=== PATIENT | male | born 1935 | race American Indian/Alaskan Native ===

== ENCOUNTER 2017-08-07 12:24 | Inpatient (IN) | payer MEDICARE, MEDICAID ==
[2017-08-07 12:31] VITALS: BMI 31.3
--- NOTE | 2017-08-07 13:20 | ED PDOC ---
Arrival/HPI - General Historian: Patient, Family (daughter) - History of Present Illness Time/Duration: 1 week Symptom Onset: Gradual Symptom Course: Unchanged, Worsening - General Chief Complaint: Altered Mental Status Time Seen by Provider: 08/07/17 12:47 - History of Present Illness Narrative History of Present Illness (Text): 08/07/17 13:12 Patient is an 82 yo M with PMH of urinary incontinence presents to ED due to altered mental status according to daughter. Patient is a poor historian as he is only oriented to himself. History provided by daughter who is at bedside. Patient lives in a senior citizen facility in [place] on his own and at baseline is able to ambulate and care for himself. Approximately one week ago the patient believed he had a winning [employer] ticket and was told to go to [place] to redeem the ticket. However, according to the daughter the ticket was not a winner. Patient was found near [place] at a restaurant, incontinent of urine, and acting strange. PD was called and patient was taken to hospital. It is unclear if the patient was evaluated at that point. The daughter states that while he was in [place] he began buying bus tickets to random locations. The patient was brought back to [place] and has taken in by his daughter. The daughter states that his mental status was somewhat confused, but stable throughout the week. However, today the daughter states that he became more confused and was asking for his mother who has been for many years. Patient was also complaining of right LE pain. Daughter states that his PO intake has been adequate. ROS limited due to patient's current mental status. No PMD (Keith Fraga) Past Medical History - Infectious Disease Hx of Infectious Diseases: None - Cardiac Hx Cardiac Disorders: Yes Hx Hypertension: Yes - Pulmonary Hx Respiratory Disorders: No - Neurological Hx Neurological Disorder: No - HEENT Hx HEENT Disorder: No - Renal Hx Renal Disorder: No - Endocrine/Metabolic Hx Endocrine Disorders: No - Hematological/Oncological Hx Blood Disorders: No - Integumentary Hx Dermatological Disorder: No - Musculoskeletal/Rheumatological Hx Musculoskeletal Disorders: No - Gastrointestinal Hx Gastrointestinal Disorders: No - Genitourinary/Gynecological Hx Genitourinary Disorders: No - Psychiatric Hx Psychophysiologic Disorder: No Hx Substance Use: No (As per daughter) Family/Social History - Physician Review Nursing Documentation Reviewed: Yes Family/Social History: No Known Family HX Smoking Status: Unknown If Ever Smoked Hx Alcohol Use: No (As per daughter) Hx Substance Use: No (As per daughter) Allergies/Home Meds Allergies/Adverse Reactions: Allergies No Known Allergies Allergy (Verified 08/07/17 12:31) Home Medications: Home Meds Medication Instructions Recorded Confirmed No Known Home Med 08/07/17 08/07/17 Review of Systems - Review of Systems Systems not reviewed;Unavailable: Altered Mental Status Physical Exam - Physical Exam Physical Exam Limitations: Altered Mental Status Vital Signs Reviewed: Yes Temperature: Afebrile Blood Pressure: Hypertensive Pulse: Regular Respiratory Rate: Normal Appearance: Positive for: Non-Toxic Pain Distress: None Mental Status: Positive for: Confused - Systems Exam Head: Present: Atraumatic, Normocephalic Pupils: Present: PERRL Extroacular Muscles: Present: EOMI Conjunctiva: Present: Normal Mouth: Present: Moist Mucous Membranes Neck: Present: Normal Range of Motion Respiratory/Chest: Present: Clear to Auscultation. No: Respiratory Distress, Wheezes, Rales, Rhonchi Cardiovascular: Present: Regular Rate and Rhythm, Normal S1, S2. No: Murmurs, Rub, Gallop Abdomen: No: Tenderness, Distention, Rebound, Guarding Upper Extremity: Present: Normal Inspection. No: Cyanosis, Edema Lower Extremity: Present: Edema (1+ b/l), NORMAL PULSES (decreased DP pulse on left). No: CALF TENDERNESS, Francisco's Sign, Tenderness Neurological: Present: GCS=15, CN II-XII Intact, Speech Normal, Motor Func Grossly Intact Skin: Present: Warm, Dry, Normal Color. No: Rashes Psychiatric: Present: Alert. No: Oriented x 3 (only oriented to self) Vital Signs Temp Pulse Resp BP Pulse Ox 08/07/17 16:13 80 18 163/84 H 99 08/07/17 15:53 65 18 176/91 H 98 08/07/17 14:16 70 20 155/84 H 99 08/07/17 13:10 67 18 158/89 H 97 08/07/17 12:33 98.5 F 62 18 169/88 H 98 Medical Decision Making ED Course and Treatment: 08/07/17 13:22 82 yo M presents to ED due to AMS. Plan: - CBC, CMP - Coags - Cardiac Iso - UA - CXR - Head CT - LE US, r/o DVT - EKG - Reassess and disposition 08/07/17 13:26 EKG reviewed, shows rate 65, sinus rhythm with 1st degree AV block, possible left atrial enlargement, left axis deviation, and left ventricular hypertrophy. 08/07/17 14:[address] Dr. Turner. Impression: There is an acute hemorrhage in the right frontal lobe measuring 2.7 x 3.7 cm. There is a small amout of surrounding edema. 08/07/17 14:29 Neurosurgery contacted, Dr. Snyder, who stated no surgical intervention at this time. Recommends elevated head of bed, repeat head CT in AM, and eventual MRI. 08/07/17 14:51 CXR reviewed by radiologist showed no active disease. 08/07/17 14:[address] Shine, who agrees with plan and accepts patient to his service. Requests Dr. Ceballos for neurology consult. Dr. Plata was consulted for ICU evaluation; he agrees with plan and accepts admission to ICU. Dr. Ceballos requests CTA of head. (Keith Fraga) 08/07/17 18:39 Patient seen and evaluated with medical review specialist. I examined patient and reviewed history with daughter at bedside. The patient reportedly lives in [place]. Approximately 8 days ago reportedly the patient began exhibiting bizzarre behavior and has had history of change in his behavior noted since then. No trauma reported. No fevers reported. Hemorrhage noted on CT. Patient complains of mild right sided frontal headache. BP 155/88 on re-evaluation. No slurred speech. No acute visual symptoms. Patient with no focal weakness noted in arms or leg, no slurred speech. CT head discussed directly with neurosurgery oncall, who has reviewed CT reading and made recommendations. I also reviewed case with neurologist Dr. ceballos, and installers mechanical, who accepts admission to ICU. Serial exams reveal no change since initial exam. (Enoc Vinson) - Lab Interpretations Lab Results: 08/07/17 13:20 08/07/17 13:20 Lab Results 08/07/17 13:20: Sodium 146, Potassium 4.5, Chloride 105, Carbon Dioxide 28, Anion Gap 18, BUN 18, Creatinine 1.1, Est GFR ( Amer) > 60, Est GFR (Non- Af Amer) > 60, Random Glucose 165 H, Calcium 9.2, Magnesium 2.1, Total Bilirubin 1.0, AST 22, ALT 24, Alkaline Phosphatase 62, Lactate Dehydrogenase 413, Total Creatine Kinase 158, Troponin I < 0.01, Total Protein 8.2, Albumin 4.3, Globulin 3.8, Albumin/Globulin Ratio 1.1 08/07/17 13:20: PT 12.0, INR 1.05, APTT 29.4 08/07/17 13:20: WBC 7.7, RBC 4.54, Hgb 12.7 L, Hct 37.5 L, MCV 82.6, MCH 28.0, MCHC 33.9, RDW 14.4, Plt Count 344, MPV 9.5, Gran % 62.6, Lymph % (Auto) 27.9, Ness % (Auto) 6.2 H, Eos % (Auto) 2.9, Baso % (Auto) 0.4, Gran # 4.82, Lymph # ( Auto) 2.2, Ness # (Auto) 0.5, Eos # (Auto) 0.2, Baso # (Auto) 0.03 - RAD Interpretation Radiology Orders: 08/07/17 13:05 CHEST ONE VIEW [RAD] Stat 08/07/17 13:10 HEAD W/O CONTRAST [CT] Stat - Medication Orders Current Medication Orders: Nicardipine HCl (Cardene Iv Premix) 20 mg in 200 mls @ 50 mls/hr IV .Q4H PRN; Protocol; 5 MG/HR PRN Reason: BPs more then 160 Last Titration: 08/07/17 16:12 Dose: 7.5 mg/hr, 75 mls/hr Titration Intervention Document 08/07/17 16:12 ABBY (Rec: 08/07/17 16:13 ABBY [id number]) Titration Intake Container Volume 180 Titration Dosing Titration Dose 7.5 IV Rate 75 Intake/Decrease Started Sodium Chloride (Sodium Chloride 0.9%) 1,000 mls @ 100 mls/hr IV .Q10H CIARAN Pantoprazole Sodium (Protonix Inj) 40 mg IVP DAILY CIARAN Last Admin: 08/07/17 15:24 Dose: 40 mg IVP Administration Document 08/07/17 15:24 BENNIE (Rec: 08/07/17 15:24 BENNIE [id number]) Charges for Administration # of IVP Administrations 1 Discontinued Medications Levetiracetam (Keppra 500mg Ivpb) 500 mg in 100 mls @ 400 mls/hr IVPB STAT STA Stop: 08/07/17 18:06 Sodium Chloride (Hypertonic Saline 3%) 100 ml IV STAT STA Stop: 08/07/17 14:59 Last Admin: 08/07/17 15:22 Dose: 100 ml eMAR Start Stop Document 08/07/17 15:22 BENNIE (Rec: 08/07/17 15:24 BENNIE [id number]) Intravenous Solution Start Date 08/07/17 Start Time 15:22 End Date 08/07/17 End time 16:22 Total Infusion Time 60 Disposition/Present on Arrival - Present on Arrival Any Indicators Present on Arrival: No History of DVT/PE: No History of Uncontrolled Diabetes: No Urinary Catheter: No History of Decub. Ulcer: No History Surgical Site Infection Following: None - Disposition Have Diagnosis and Disposition been Completed?: Yes Disposition Time: 15:32 Patient Plan: Admission, ICU - Disposition Diagnosis: Cerebral hemorrhage, Altered mental status Disposition: HOSPITALIZED Patient Problems: Current Active Problems Problem Status Onset Altered mental status Acute Cerebral hemorrhage Acute Condition: GUARDED
[2017-08-07 13:36] LABS: BASO # 0.03 K/mm3 (0.0-2.0); BASO % 0.4 % (0.0-3.0); EOS # 0.2 (0.0-0.7); EOS % 2.9 % (1.5-5.0); GRAN # 4.82 (1.4-6.5); GRAN % 62.6 % (50.0-68.0); HEMOGLOBIN 12.7 g/dL (14.0-18.0); LYMPH # 2.2 (1.2-3.4); LYMPH % 27.9 % (22.0-35.0); MEAN CELL VOLUME 82.6 fl (80.0-105.0); MEAN CORPUSCULAR HGB CONC 33.9 g/dl (31.0-37.0); MEAN PLATELET VOLUME 9.5 fl (7.0-11.0); MONO # 0.5 (0.1-0.6); MONO % 6.2 % (1.0-6.0); RBC 4.54 10^6/uL (3.5-6.1); RED CELL DISTRIBUTION WIDTH 14.4 % (11.5-14.5); WHITE BLOOD COUNT 7.7 10^3/ul (4.5-11.0)
[2017-08-07 13:46] LABS: ALB/GLOB RATIO 1.1 (1.1-1.8); ALBUMIN 4.3 g/dL (3.0-4.8); ALT/SGPT 24 U/L (7-56); AST/SGOT 22 U/L (17-59); BLOOD UREA NITROGEN 18 mg/dL (7-21); CALCIUM 9.2 mg/dL (8.4-10.5); GFR AFRICAN-AMERICAN > 60; GFR NON-AFRICAN AMERICAN > 60; INR 1.05 (0.93-1.08); PARTIAL THROMBOPLASTIN TIME 29.4 Seconds (25.1-36.5)
[2017-08-07 13:57] LABS: TROPONIN I < 0.01 ng/mL
--- NOTE | 2017-08-07 14:00 | CT ---
PROCEDURE: CT HEAD WITHOUT CONTRAST. HISTORY: ams COMPARISON: None available. TECHNIQUE: Axial computed tomography images were obtained through the head/brain without intravenous contrast. Radiation dose: Total exam DLP = 845 mGy-cm. This CT exam was performed using one or more of the following dose reduction techniques: Automated exposure control, adjustment of the mA and/or kV according to patient size, and/or use of iterative reconstruction technique. FINDINGS: HEMORRHAGE: There is an acute hemorrhage in the right frontal lobe measuring 2.7 x 3.7 cm. There is a small amount of surrounding edema. BRAIN: Minimal mass effect with sulcal effacement. No significant midline shift chronic microvascular changes are seen. VENTRICLES: Unremarkable. No hydrocephalus. CALVARIUM: Unremarkable. PARANASAL SINUSES: Unremarkable as visualized. No significant inflammatory changes. MASTOID AIR CELLS: Unremarkable as visualized. No inflammatory changes. OTHER FINDINGS: Findings were discussed with Dr. Fraga at 2 p.m. IMPRESSION: There is an acute hemorrhage in the right frontal lobe measuring 2.7 x 3.7 cm. There is a small amount of surrounding edema.
--- NOTE | 2017-08-07 14:22 | RAD ---
PROCEDURE: CHEST RADIOGRAPH, 1 VIEW HISTORY: ams COMPARISON: None available. FINDINGS: LUNGS: Clear. PLEURA: No pneumothorax or pleural fluid seen. CARDIOVASCULAR: Normal. OSSEOUS STRUCTURES: No significant abnormalities. VISUALIZED UPPER ABDOMEN: Normal. OTHER FINDINGS: None. IMPRESSION: No active disease.
[2017-08-07] MEDS ORDERED: Dexamethasone 4 mg/1 ml IVP STA (14:51)
--- NOTE | 2017-08-07 15:14 | CARD ---
APPROVED REPORT EKG Measurement Heart [id number] <Conclusion> Sinus rhythm with 1st degree AV block Possible Left atrial enlargement Left axis deviation Left ventricular hypertrophy Abnormal ECG
[2017-08-07] MEDS: Nicardipine 20 MG/200 ML 20 MG/200 ML BAG IV PRN ×2 (15:53→19:24)
[2017-08-07] MEDS ORDERED: Iohexol 350 MG/100 ML VIAL ONE (16:19)
[2017-08-07] MEDS ORDERED: levETIRAcetam 500mg IVPB 500 MG/100 ML BAG IVPB STA (17:52)
--- NOTE | 2017-08-07 18:07 | CT ---
PROCEDURE: CT Angiography of the Head and Neck. HISTORY: darcie Dooley, hx of brain hemorrhage COMPARISON: None available. TECHNIQUE: CT angiography of the intracranial and neck arteries was performed. Coronal and sagittal maximum intensity projection reformatted images were generated. Contrast Dose: Omnipaque 350, 100 cc. Radiation dose:Total exam DLP = 573.04 mGy-cm. This CT exam was performed using one or more of the following dose reduction techniques: Automated exposure control, adjustment of the mA and/or kV according to patient size, and/or use of iterative reconstruction technique. FINDINGS: INTERNAL CEREBRAL ARTERIES: Unremarkable. The skull base, petrous, cavernous and supraclinoid segments are bilaterally widely patent. ANTERIOR CEREBRAL ARTERIES: Unremarkable. A1 and A2 segments are widely patent. Smaller distal branches unremarkable, as visualized. MIDDLE CEREBRAL ARTERIES: Unremarkable. M1 and M2 segments are widely patent. Perisylvian branches grossly symmetric. POSTERIOR CIRCULATION: Basilar Artery: Unremarkable. Distal Vertebral Arteries: Unremarkable. Posterior Cerebral Arteries: Unremarkable. Posterior Inferior Cerebellar Arteries: Unremarkable. NECK CTA: Common Carotid arteries: The bilateral common carotid appear widely patent from their origins to their bifurcations with no significant stenosis appreciated. No evidence to suggest common carotid artery dissection. Internal Carotid arteries: No significant stenosis is appreciated throughout the cervical internal carotid artery segments bilaterally and there is no evidence of dissection either. External Carotid arteries: Appear unremarkable bilaterally. Vertebral arteries: The bilateral vertebral arteries appear normal in caliber from their origins to their junction with the basilar artery. Limited proximal left vertebral arterial atherosclerosis identified. No significant stenosis or definite pattern of dissection. ANEURYSM/ VASCULAR MALFORMATIONS: None. OTHER FINDINGS: None. IMPRESSION: No occlusion or significant stenosis in CT Angiography of the Head and Neck. .
[2017-08-07] MEDS: Sodium Chloride 0.9% 1,000 ML IV SCH (18:47)
--- NOTE | 2017-08-07 18:59 | CON ---
DATE: 08/07/2017 NEUROLOGY CONSULTATION CHIEF COMPLAINT: Acute right frontal lobe hemorrhage. HISTORY OF PRESENT ILLNESS: An 82-year-old man with past medical history of urinary incontinence, who came to the ER with altered mental status according to the daughter. The patient is a poor historian, oriented to himself, but not year or month. The patient lives in a senior citizen facility in [place] on his own and baseline is able to ambulate and care for himself. Approximately, one week ago, he believed he had winning a [employer] ticket and was told to go to [place] to redeem his ticket; however, according to the daughter, the ticket was not a winner and he was found near [place] at a restaurant; incontinence of urine, acting strange, and was taken to the hospital, but was unclear if he has been evaluated at that point. Currently, his daughter stated that his mental status was much more confused throughout the weekend, therefore brought into the hospital. There is mild subtle left-sided weakness seen. His CAT scan of the head showed an acute hemorrhage in the right frontal lobe measuring 2.7 x 3.7 cm with mild surrounding edema. We gave him 2 mg of IV dexamethasone in the ER and was placed on nicardipine drip for high blood pressure. He is going to get a CT angiogram of the head as well as an MRI of the brain. Neurosurgery recommended no neurosurgical interventions at this point for now. The patient still has mild bizarre behavior, more of a frontal lobe syndrome from acute right frontal hemorrhage. PAST MEDICAL HISTORY: Urinary incontinence, high blood pressure. REVIEW OF SYSTEMS: A 14-point review of systems is negative except per the HPI. ALLERGIES: NO KNOWN DRUG ALLERGIES. MEDICATIONS: Reviewed by nurse per reconciliation sheet. SOCIAL HISTORY: No illicit drug use, smoking, or EtOH abuse. FAMILY HISTORY: Noncontributory. LABORATORY DATA: Sodium is 146, potassium 4.5, chloride 105, carbon dioxide 28. BUN of 18, creatinine 1.1. Random glucose 165. PHYSICAL EXAMINATION: VITAL SIGNS: Temperature afebrile, pulse rate of 80, blood pressure 176/91, respiratory rate of 18, oxygen saturation 98% by room air. GENERAL: The patient is sitting up in bed, in no acute distress. HEENT: Head is atraumatic and normocephalic. PERRLA. Extraocular muscles intact. NECK: Supple. No JVD. No adenopathy noted. LUNGS: Clear to auscultation. No adventitious sounds. HEART: S1, S2. Normal rate and rhythm. No murmurs, rubs, or gallops. ABDOMEN: Soft, nontender, and nondistended. Bowel sounds are present. EXTREMITIES: No clubbing. No cyanosis. Peripheral pulses 2+ felt bilaterally. NEUROLOGIC: The patient is alert, oriented to person, but not place, month, or year. Recall after 5 minutes is 0/3. Poor attention span. Slow thought process. He seems very disinhibited. Cranial nerves II through XII are intact. Motor exam: Moves all extremities equally. Slight reduced left-sided finger tap when compared to the right. Toes are upgoing bilaterally. Sensory exam: Light touch, pinprick, proprioception, and vibration are intact. DTRs are 2+ throughout, 1 at both knees and ankles. Coordination of [id number] intact. Gait is deferred for now. No dysmetria noted. ASSESSMENT AND PLAN: This is an 82-year-old man with history of urinary incontinence, found acting bizarre for the past week, was brought in for further worsening mental status. He is found to have acute right frontal lobe hemorrhage measuring 2.7 x 3.7 cm with small amount of surrounding edema. Currently, he has mild subtle left-sided weakness when compared to the right, but he follows commands and quite disinhibited from the frontal lobe hemorrhage and this acute hemorrhage could be secondary to amyloid angiopathy versus hypertensive urgency. At this time, we recommend; 1. No antiplatelets for the next 3 weeks from the acute onset of bleed. 2. MRI of the brain without contrast and CT angio of the head to assess for any aneurysms. 3. Prophylactic Keppra could be given 250 IV every 12 hours as needed. 4. Follow up with Neurosurgery recommendations. 5. Elevation of the head at 30 degrees and dexamethasone 2 mg IV x1 dose for some edema. Thank you for this consult. Fahad Dooley MD [facility] # [id number]
[2017-08-07 19:13] LABS: BLOOD UREA NITROGEN 16 mg/dL (7-21); CALCIUM 9.2 mg/dL (8.4-10.5); GFR AFRICAN-AMERICAN > 60; GFR NON-AFRICAN AMERICAN > 60
[2017-08-07 20:01] LABS: HDL CHOLESTEROL 27 mg/dL (29-60)
[2017-08-07 20:11] LABS: LDL CHOLESTEROL 122 mg/dL (0-129)
[2017-08-07] MEDS ORDERED: Pneumococcal 23-Valent Vaccine IM ONE (22:41)
[2017-08-08] MEDS: Insulin Reg-MEDIUM-Coverage SC SCH ×4 (00:06→17:09)
--- NOTE | 2017-08-08 03:11 | CON ---
DATE: 08/07/2017 HISTORY OF PRESENT ILLNESS: This is an 82-year-old gentleman without significant past medical history, who was found wandering at [place], [place], after a trip won by [employer]. He was admitted there to hospital, but no serious workup was done and patient was put on a bus and sent back to [place]. Here, he was found to have been disoriented, confused, and hallucinating. Patient also had wobbly gait and some generalized weakness. No nausea, no vomiting, no diarrhea, no constipation. Patient was admitted to [facility] ER where CAT scan of the head was done, which revealed significant hemorrhage in the right frontal area. PAST MEDICAL HISTORY: None. SOCIAL HISTORY: No alcohol or illicit drug abuse. No tobacco smoking. ALLERGIES: NKDA. FAMILY HISTORY: Noncontributory. REVIEW OF SYSTEMS: Review of 12-organ system other than mentioned in the history of present illness is negative. MEDICATIONS: None. PHYSICAL EXAMINATION: VITAL SIGNS: Blood pressure 155/84, heart rate 70, temperature 98.5, respiratory rate 20, oxygen saturation 99% on room air. ENT: Head and neck atraumatic. LUNGS: Clear to auscultation bilaterally. HEART: Regular rate and rhythm. S1 and S2 normal. ABDOMEN: Soft, nontender, nondistended. MUSCULOSKELETAL: There are chronic cellulitic changes in the both lower extremities. Trace to 1+ bilateral pedal and ankle edema. NEUROLOGICAL: Patient appears to have symmetric 5/5 strength in both upper and lower extremities. No overt weakness in the distribution of cranial nerves from II to XII. SKIN: Moist. PSYCHIATRIC: Patient is alert, awake, and oriented in place, person, however, confused in regards to time. LABORATORY DATA: WBC is 7.7, hemoglobin is 12.7, platelet count 344. Sodium 146, potassium 4.5, chloride 105, carbon dioxide 28, BUN 18, creatinine 1.1, glucose 165, calcium 9.2. AST 22, ALT 24. Troponin less than 0.01. INR 1.05. Head CT showed acute hemorrhage in the right frontal lobe measuring 2.7 x 3.7 cm. There is a small amount of surrounding edema, minimum mass effect with sulcal effacement, no significant midline shift. Chronic microvascular changes. Chest x-ray showed no active pulmonary disease. EKG showed normal sinu rhythm with first-degree AV block. SC interval 260 milliseconds. ASSESSMENT AND PLAN: This is an 82-year-old gentleman without significant past medical history, who according to daughter was trying to avoid doctors in the past, who presented now with confusion, altered mental status, unstable gait, and right frontal lobe acute intracranial bleeding. At present time, we will proceed with blood pressure control. We will give bolus of hypertonic saline and continue with normal saline. Neurosurgery and Neurology were contacted and are aware about the patient. We will follow up with them as well. We will continue to target euvolemia, euglycemia, normothermia, and oxygen saturations more than 92-97%. We will maintain sodium between 145 and 160. We will get Accu-Chek every 4 hours to avoid hypoglycemia. If blood pressure goes about 160 systolic, we will start Cardene drip. Patient will be admitted to ICU for further management and monitoring. At present time, patient is able to protect his airways. ccm time 40 min Sander Plata MD JULIAN
--- NOTE | 2017-08-08 06:05 | HP ---
HISTORY OF PRESENT ILLNESS: I was called to see Mr. Burkett from the ER because he had some weird changes, altered mental status from his daughter who spent time talking with me. He is an 82-year-old -[place] man who I am seeing now in the Intensive Care Unit with his daughter present. He was acting bizarre and not doing well. He believed he had won a lottery ticket, went to [place], but it was not the winning ticket. He was actually very, very strange. He had mental status changes. He was confused. He is from [place] and he is visiting her here in [place] and got worse and took him to the emergency room. PAST MEDICAL HISTORY: He has a past medical history of hypertension. FAMILY HISTORY: No known family history. SOCIAL HISTORY: Does not know if he smoked, not sure about alcohol or substance abuse. ALLERGIES: NO KNOWN DRUG ALLERGIES. MEDICATIONS: He has no clue about the medications he was taking and probably was not taking any medications, he said. REVIEW OF SYSTEMS: Difficult to get a review of systems. He has altered mental status. He is alert. He talks a little bit, but does not really answer questions well. PHYSICAL EXAMINATION: GENERAL: No apparent distress at this time. VITAL SIGNS: He has 98.5 temperature, 62 pulse, 18 respiratory rate, blood pressure was as high as 176/91, and 98 O2 sat. It is now 140/81, on Cardene drip. HEENT: Extraocular muscles are intact. Throat is dry. Head is atraumatic and normocephalic. NECK: Supple. HEART: Regular rate. Normal S1 and S2. LUNGS: Decreased breath sounds, but clear to auscultation bilaterally. ABDOMEN: Soft and nontender. Positive bowel sounds. No guarding. No rebound. No CVA tenderness. EXTREMITIES: Trace edema to +1 bilaterally. NEUROLOGIC: GCS of 15. Cranial nerves II through XII are grossly intact. He is alert only to himself though. SKIN: Warm and dry. No apparent rashes or ulcers. LYMPHS: Thyroid midline. No palpable lymphadenopathy. LABORATORY DATA: He had multiple tests done. He had a CAT scan of the head, which showed there is an acute hemorrhage in the frontal lobe, measuring 2.7 x 3.7 cm, with a small amount of surrounding swelling and edema. Chest x-ray was clear. He has 146 sodium, potassium is 3.9, BUN is 16, creatinine 0.9, GFR is greater than 60, sugar is 181. Calcium is 9.2, magnesium 2.1, total bilirubin is 1. AST is 22, ALT is 24, alkaline phosphatase 52. Lactate dehydrogenase is 413. Total creatine kinase is 158. Troponin I is less than 0.01. Total protein is 8.2, albumin is 4.3. INR is 1.05. He has 7.7 white count, 12.7 hemoglobin, 37.5 hematocrit, with 344 platelets. IMPRESSION: He is on Cardene drip, Protonix IV, IV fluids - which I am going to decrease. He is n.p.o. He is going to have consults with Neurology, Cardiology and Neurosurgery. He is also getting insulin coverage. He is on Keppra. He is having a little bit of difficulty right now due to his diagnosis of cerebral bleed. We will watch him in the Intensive Care Unit very carefully. Discussed at length with the daughter. Discussed with the nurses. He is here for cerebral bleed and change in mentation. Frankie Shine DO
[2017-08-08 07:04] LABS: BASO # 0.02 K/mm3 (0.0-2.0); BASO % 0.3 % (0.0-3.0); EOS # 0.3 (0.0-0.7); EOS % 3.3 % (1.5-5.0); GRAN # 4.88 (1.4-6.5); GRAN % 64.9 % (50.0-68.0); HEMOGLOBIN 13.5 g/dL (14.0-18.0); LYMPH # 1.7 (1.2-3.4); LYMPH % 23.2 % (22.0-35.0); MEAN CELL VOLUME 81.9 fl (80.0-105.0); MEAN CORPUSCULAR HEMOGLOBIN 27.7 pg (25.0-35.0); MEAN CORPUSCULAR HGB CONC 33.8 g/dl (31.0-37.0); MEAN PLATELET VOLUME 9.6 fl (7.0-11.0); MONO # 0.6 (0.1-0.6); MONO % 8.3 % (1.0-6.0); RBC 4.87 10^6/uL (3.5-6.1); RED CELL DISTRIBUTION WIDTH 14.1 % (11.5-14.5); WHITE BLOOD COUNT 7.5 10^3/ul (4.5-11.0)
[2017-08-08 07:10] LABS: ALT/SGPT 28 U/L (7-56); AST/SGOT 24 U/L (17-59); BLOOD UREA NITROGEN 13 mg/dL (7-21); CALCIUM 8.6 mg/dL (8.4-10.5); GFR AFRICAN-AMERICAN > 60; GFR NON-AFRICAN AMERICAN > 60
[2017-08-08] MEDS: Dexamethasone 4 mg/1 ml IVP SCH ×3 (09:59→21:47)
--- NOTE | 2017-08-08 10:09 | PN ---
DATE: 08/08/2017 SUBJECTIVE: I saw him in the Intensive Care Unit. He told me he slept a little bit. He is alert. No chest pain or shortness of breath. No abdominal pain. Still a little bit out of it, I think and I reorient him, but he is comfortable. No headache. PHYSICAL EXAMINATION: VITAL SIGNS: 97.8 temp, 60 pulse, 97% O2 sat, 126/75 blood pressure. HEENT: His head is atraumatic, normocephalic. He is looking at me. Throat is dry. HEART: Regular rate. LUNGS: Clear to auscultation. ABDOMEN: Soft. EXTREMITIES: No edema. MEDICATIONS: He is currently on Cardene IV, insulin, Protonix IV, IV fluids. LABORATORY DATA: He has a 147 sodium, potassium 4.1, BUN , creatinine 0.9, GFR is greater than 60, sugar is 152, calcium is 8.6, total bili is 1.9, AST is 24, ALT is 28, alk phos 65, total protein 7.8. Vitamin B12 was 539. INR is 1.05. He has a 7.5 white count, 13.5 hemoglobin, 39.9 hematocrit with 328 platelets. ASSESSMENT AND PLAN: He was seen by Neurology and the acting manager. He had worsening mental status. He has an acute right frontal lobe hemorrhage, surrounding edema. Mild left-sided weakness. He will need physical therapy. I am going to get a swallow eval. Get him out of bed to chair if we can. Await other consults that were called in, Cardiology and and hopefully he will do very well. Frankie Shine DO [facility]
--- NOTE | 2017-08-08 10:54 | CP.CCUPN ---
<Montez Colby - Last Filed: 08/08/17 10:45> CCU Subjective - Physician Review Events Since Last Encounter (Free Text): 08/08/17 07:45 Patient seen and examined at bedside. No acute overnight events. Patient history limited 2/2 mental status, but daughter at bedside states that patient is not any worse than before. CCU Objective - Vital Signs / Intake & Output Intake and Output (Last 8hrs): Intake & Output 08/07/17 08/08/17 08/08/17 22:59 06:59 14:59 Intake Total 880 1200 Output Total 1100 Balance -220 1200 Weight 90.718 kg 77.201 kg Intake: IV 880 1200 Left Antecubital 700 1200 Oral 0 0 Output: Urine 1100 Condom 1100 Stool 0 Other: # Voids Condom 3 # Bowel Movements 0 - Physical Exam Head: Positive for: Atraumatic, Normocephalic Pupils: Positive for: PERRL Extroacular Muscles: Positive for: EOMI Conjunctiva: Positive for: Normal Mouth: Positive for: Moist Mucous Membranes Neck: Positive for: Normal Range of Motion Respiratory/Chest: Positive for: Clear to Auscultation. Negative for: Respiratory Distress, Wheezes, Rales, Rhonchi Cardiovascular: Positive for: Regular Rate and Rhythm, Normal S1, S2. Negative for: Murmurs, Rub, Gallop Abdomen: Negative for: Tenderness, Distention, Rebound, Guarding Upper Extremity: Positive for: Normal Inspection. Negative for: Cyanosis, Edema Lower Extremity: Positive for: Edema (1+ b/l), NORMAL PULSES (decreased DP pulse on left). Negative for: CALF TENDERNESS, Francisco's Sign, Tenderness Neurological: Positive for: GCS=15, CN II-XII Intact, Speech Normal, Motor Func Grossly Intact Skin: Positive for: Warm, Dry, Normal Color. Negative for: Rashes Psychiatric: Positive for: Alert. Negative for: Oriented x 3 (only oriented to self) - Medications Active Medications: Active Medications Generic Name Dose Route Start Last Admin Trade Name Freq PRN Reason Stop Dose Admin Dexamethasone 2 mg 08/08/17 10:00 08/08/17 09:59 Decadron Inj IVP 2 mg Q6H CIARAN Administration Nicardipine HCl 20 mg in 200 mls @ 50 mls/hr 08/07/17 15:01 08/07/17 19:24 Cardene Iv Premix IV 5 mg/hr .Q4H PRN 50 mls/hr BPs more then 160 Administration Protocol 5 MG/HR Sodium Chloride 1,000 mls @ 100 mls/hr 08/07/17 15:15 08/07/17 18:47 Sodium Chloride 0.9% IV 100 mls/hr .Q10H CIARAN Administration Levetiracetam 250 mg/ Sodium 102.5 mls @ 460 mls/hr 08/08/17 10:00 08/08/17 10:22 Chloride IV 460 mls/hr Q12 CIARAN Administration Insulin Human Regular 0 units 08/07/17 22:00 08/08/17 09:54 Humulin R Med SC Not Given ACHS [facility] Protocol Pantoprazole Sodium 40 mg 08/07/17 15:15 08/08/17 10:00 Protonix Inj IVP 40 mg DAILY CIARAN Administration - Patient Studies Lab Studies: Lab Studies 08/08/17 08/08/17 08/08/17 Range/Units 07:25 06:40 06:40 WBC 7.5 (4.5-11.0) 10^3/ul RBC 4.87 (3.5-6.1) 10^6/uL Hgb 13.5 L (14.0-18.0) g/dL Hct 39.9 L (42.0-52.0) % MCV 81.9 (80.0-105.0) fl MCH 27.7 (25.0-35.0) pg MCHC 33.8 (31.0-37.0) g/dl RDW 14.1 (11.5-14.5) % Plt Count 328 (120.0-450.0) 10^3/uL MPV 9.6 (7.0-11.0) fl Gran % 64.9 (50.0-68.0) % Lymph % (Auto) 23.2 (22.0-35.0) % [place] % (Auto) 8.3 H (1.0-6.0) % Eos % (Auto) 3.3 (1.5-5.0) % Baso % (Auto) 0.3 (0.0-3.0) % Gran # 4.88 (1.4-6.5) Lymph # (Auto) 1.7 (1.2-3.4) [place] # (Auto) 0.6 (0.1-0.6) Eos # (Auto) 0.3 (0.0-0.7) Baso # (Auto) 0.02 (0.0-2.0) K/mm3 Sodium 147 (132-148) mmol/L Potassium 4.1 (3.6-5.0) mmol/L Chloride 106 (98-107) mmol/L Carbon Dioxide 27 (21-33) mmol/L Anion Gap 18 (10-20) BUN 13 (7-21) mg/dL Creatinine 0.9 (0.8-1.5) mg/dl Est GFR ( Amer) > 60 Est GFR (Non-Af Amer) > 60 POC Glucose (mg/dL) 152 H (65-110) mg/dL Random Glucose 158 H (70-110) mg/dL Hemoglobin A1c (4.2-6.5) % Calcium 8.6 (8.4-10.5) mg/dL Total Bilirubin 1.9 H (0.2-1.3) mg/dL AST 24 (17-59) U/L ALT 28 (7-56) U/L Alkaline Phosphatase 65 (38-126) U/L Total Protein 7.8 (5.8-8.3) g/dL Albumin 4.0 (3.0-4.8) g/dL Globulin 3.8 gm/dL Albumin/Globulin Ratio 1.0 L (1.1-1.8) Vitamin B12 (239-931) pg/mL 08/07/17 08/07/17 08/07/17 Range/Units 22:39 17:45 17:45 WBC (4.5-11.0) 10^3/ul RBC (3.5-6.1) 10^6/uL Hgb (14.0-18.0) g/dL Hct (42.0-52.0) % MCV (80.0-105.0) fl MCH (25.0-35.0) pg MCHC (31.0-37.0) g/dl RDW (11.5-14.5) % Plt Count (120.0-450.0) 10^3/uL MPV (7.0-11.0) fl Gran % (50.0-68.0) % Lymph % (Auto) (22.0-35.0) % [place] % (Auto) (1.0-6.0) % Eos % (Auto) (1.5-5.0) % Baso % (Auto) (0.0-3.0) % Gran # (1.4-6.5) Lymph # (Auto) (1.2-3.4) [place] # (Auto) (0.1-0.6) Eos # (Auto) (0.0-0.7) Baso # (Auto) (0.0-2.0) K/mm3 Sodium (132-148) mmol/L Potassium (3.6-5.0) mmol/L Chloride (98-107) mmol/L Carbon Dioxide (21-33) mmol/L Anion Gap (10-20) BUN (7-21) mg/dL Creatinine (0.8-1.5) mg/dl Est GFR ( Amer) Est GFR (Non-Af Amer) POC Glucose (mg/dL) 156 H (65-110) mg/dL Random Glucose (70-110) mg/dL Hemoglobin A1c 7.9 H (4.2-6.5) % Calcium (8.4-10.5) mg/dL Total Bilirubin (0.2-1.3) mg/dL AST (17-59) U/L ALT (7-56) U/L Alkaline Phosphatase (38-126) U/L Total Protein (5.8-8.3) g/dL Albumin (3.0-4.8) g/dL Globulin gm/dL Albumin/Globulin Ratio (1.1-1.8) Vitamin B12 539 (239-931) pg/mL 08/07/17 Range/Units 17:45 WBC (4.5-11.0) 10^3/ul RBC (3.5-6.1) 10^6/uL Hgb (14.0-18.0) g/dL Hct (42.0-52.0) % MCV (80.0-105.0) fl MCH (25.0-35.0) pg MCHC (31.0-37.0) g/dl RDW (11.5-14.5) % Plt Count (120.0-450.0) 10^3/uL MPV (7.0-11.0) fl Gran % (50.0-68.0) % Lymph % (Auto) (22.0-35.0) % [place] % (Auto) (1.0-6.0) % Eos % (Auto) (1.5-5.0) % Baso % (Auto) (0.0-3.0) % Gran # (1.4-6.5) Lymph # (Auto) (1.2-3.4) [place] # (Auto) (0.1-0.6) Eos # (Auto) (0.0-0.7) Baso # (Auto) (0.0-2.0) K/mm3 Sodium 146 (132-148) mmol/L Potassium 3.9 (3.6-5.0) mmol/L Chloride 105 (98-107) mmol/L Carbon Dioxide 26 (21-33) mmol/L Anion Gap 19 (10-20) BUN 16 (7-21) mg/dL Creatinine 0.9 (0.8-1.5) mg/dl Est GFR ( Amer) > 60 Est GFR (Non-Af Amer) > 60 POC Glucose (mg/dL) (65-110) mg/dL Random Glucose 181 H (70-110) mg/dL Hemoglobin A1c (4.2-6.5) % Calcium 9.2 (8.4-10.5) mg/dL Total Bilirubin (0.2-1.3) mg/dL AST (17-59) U/L ALT (7-56) U/L Alkaline Phosphatase (38-126) U/L Total Protein (5.8-8.3) g/dL Albumin (3.0-4.8) g/dL Globulin gm/dL Albumin/Globulin Ratio (1.1-1.8) Vitamin B12 (239-931) pg/mL Laboratory Results - last 24 hr 08/07/17 08/07/17 08/07/17 17:45 17:45 17:45 WBC RBC Hgb Hct MCV MCH MCHC RDW Plt Count MPV Gran % Lymph % (Auto) [place] % (Auto) Eos % (Auto) Baso % (Auto) Gran # Lymph # (Auto) [place] # (Auto) Eos # (Auto) Baso # (Auto) Sodium 146 Potassium 3.9 Chloride 105 Carbon Dioxide 26 Anion Gap 19 BUN 16 Creatinine 0.9 Est GFR ( Amer) > 60 Est GFR (Non-Af Amer) > 60 POC Glucose (mg/dL) Random Glucose 181 H Hemoglobin A1c 7.9 H Calcium 9.2 Total Bilirubin AST ALT Alkaline Phosphatase Total Protein Albumin Globulin Albumin/Globulin Ratio Vitamin B12 539 08/07/17 08/08/17 08/08/17 22:39 06:40 06:40 WBC 7.5 RBC 4.87 Hgb 13.5 L Hct 39.9 L MCV 81.9 MCH 27.7 MCHC 33.8 RDW 14.1 Plt Count 328 MPV 9.6 Gran % 64.9 Lymph % (Auto) 23.2 [place] % (Auto) 8.3 H Eos % (Auto) 3.3 Baso % (Auto) 0.3 Gran # 4.88 Lymph # (Auto) 1.7 [place] # (Auto) 0.6 Eos # (Auto) 0.3 Baso # (Auto) 0.02 Sodium 147 Potassium 4.1 Chloride 106 Carbon Dioxide 27 Anion Gap 18 BUN 13 Creatinine 0.9 Est GFR ( Amer) > 60 Est GFR (Non-Af Amer) > 60 POC Glucose (mg/dL) 156 H Random Glucose 158 H Hemoglobin A1c Calcium 8.6 Total Bilirubin 1.9 H AST 24 ALT 28 Alkaline Phosphatase 65 Total Protein 7.8 Albumin 4.0 Globulin 3.8 Albumin/Globulin Ratio 1.0 L Vitamin B12 08/08/17 07:25 WBC RBC Hgb Hct MCV MCH MCHC RDW Plt Count MPV Gran % Lymph % (Auto) [place] % (Auto) Eos % (Auto) Baso % (Auto) Gran # Lymph # (Auto) [place] # (Auto) Eos # (Auto) Baso # (Auto) Sodium Potassium Chloride Carbon Dioxide Anion Gap BUN Creatinine Est GFR ( Amer) Est GFR (Non-Af Amer) POC Glucose (mg/dL) 152 H Random Glucose Hemoglobin A1c Calcium Total Bilirubin AST ALT Alkaline Phosphatase Total Protein Albumin Globulin Albumin/Globulin Ratio Vitamin B12 Fingerstick Blood Sugar Results: 150 Assessment/Plan - Assessment and Plan (Free Text) Assessment: 82 year old male with no subjective medical history under ICU care for altered mental status 2/[address] head showed Acute hemorrhage in R frontal lobe with small surrounding edema; CTA H/N showed no occlusion. CBC, CMP, and coags are stable. Patient's baseline is unknown, but his daughter gives subjective account of altered mentation. Plan: Neuro - Neurology Consult: Dr. Dooley - no antiplatelets for 3 weeks, need MRI brain without contrast, give prophylactic keppra at q12 250, Dexamethasone 2 q6, and follow up neurosurgery recommendations - Maintain normothermia Cardio - Maintain MAP > 65 - Cardene drip PRN Pulm - Monitor airway protection - Maintain sat > 92% GI - Protonix DVT PPX Renal/ - Maintain euvolemia Heme - No DVT ppx given hemorrhage Endo - Maintain euglycemia ID - No intervention Dispo: Awaiting recommendations per Neurosurgery <Santi Marrufo - Last Filed: 08/08/17 12:45> CCU Objective - Vital Signs / Intake & Output Intake and Output (Last 8hrs): Intake & Output 08/07/17 08/08/17 08/08/17 22:59 06:59 14:59 Intake Total 880 1200 Output Total 1100 Balance -220 1200 Weight 200 lb 170 lb 3.2 oz Intake: IV 880 1200 Left Antecubital 700 1200 Oral 0 0 Output: Urine 1100 Condom 1100 Stool 0 Other: # Voids Condom 3 # Bowel Movements 0 - Medications Active Medications: Active Medications Generic Name Dose Route Start Last Admin Trade Name Freq PRN Reason Stop Dose Admin Dexamethasone 2 mg 08/08/17 10:00 08/08/17 09:59 Decadron Inj IVP 2 mg Q6H CIARAN Administration Nicardipine HCl 20 mg in 200 mls @ 50 mls/hr 08/07/17 15:01 08/07/17 19:24 Cardene Iv Premix IV 5 mg/hr .Q4H PRN 50 mls/hr BPs more then 160 Administration Protocol 5 MG/HR Sodium Chloride 1,000 mls @ 100 mls/hr 08/07/17 15:15 08/07/17 18:47 Sodium Chloride 0.9% IV 100 mls/hr .Q10H CIARAN Administration Levetiracetam 250 mg/ Sodium 102.5 mls @ 460 mls/hr 08/08/17 10:00 08/08/17 10:22 Chloride IV 460 mls/hr Q12 CIARAN Administration Insulin Human Regular 0 units 08/07/17 22:00 08/08/17 09:54 Humulin R Med SC Not Given ACHS [facility] Protocol Pantoprazole Sodium 40 mg 08/07/17 15:15 08/08/17 10:00 Protonix Inj IVP 40 mg DAILY CIARAN Administration - Patient Studies Lab Studies: Lab Studies 08/08/17 08/08/17 08/08/17 Range/Units 11:57 07:25 06:40 WBC (4.5-11.0) 10^3/ul RBC (3.5-6.1) 10^6/uL Hgb (14.0-18.0) g/dL Hct (42.0-52.0) % MCV (80.0-105.0) fl MCH (25.0-35.0) pg MCHC (31.0-37.0) g/dl RDW (11.5-14.5) % Plt Count (120.0-450.0) 10^3/uL MPV (7.0-11.0) fl Gran % (50.0-68.0) % Lymph % (Auto) (22.0-35.0) % [place] % (Auto) (1.0-6.0) % Eos % (Auto) (1.5-5.0) % Baso % (Auto) (0.0-3.0) % Gran # (1.4-6.5) Lymph # (Auto) (1.2-3.4) [place] # (Auto) (0.1-0.6) Eos # (Auto) (0.0-0.7) Baso # (Auto) (0.0-2.0) K/mm3 Sodium 147 (132-148) mmol/L Potassium 4.1 (3.6-5.0) mmol/L Chloride 106 (98-107) mmol/L Carbon Dioxide 27 (21-33) mmol/L Anion Gap 18 (10-20) BUN 13 (7-21) mg/dL Creatinine 0.9 (0.8-1.5) mg/dl Est GFR ( Amer) > 60 Est GFR (Non-Af Amer) > 60 POC Glucose (mg/dL) 150 H 152 H (65-110) mg/dL Random Glucose 158 H (70-110) mg/dL Hemoglobin A1c (4.2-6.5) % Calcium 8.6 (8.4-10.5) mg/dL Total Bilirubin 1.9 H (0.2-1.3) mg/dL AST 24 (17-59) U/L ALT 28 (7-56) U/L Alkaline Phosphatase 65 (38-126) U/L Total Protein 7.8 (5.8-8.3) g/dL Albumin 4.0 (3.0-4.8) g/dL Globulin 3.8 gm/dL Albumin/Globulin Ratio 1.0 L (1.1-1.8) Vitamin B12 (239-931) pg/mL 08/08/17 08/07/17 08/07/17 Range/Units 06:40 22:39 17:45 WBC 7.5 (4.5-11.0) 10^3/ul RBC 4.87 (3.5-6.1) 10^6/uL Hgb 13.5 L (14.0-18.0) g/dL Hct 39.9 L (42.0-52.0) % MCV 81.9 (80.0-105.0) fl MCH 27.7 (25.0-35.0) pg MCHC 33.8 (31.0-37.0) g/dl RDW 14.1 (11.5-14.5) % Plt Count 328 (120.0-450.0) 10^3/uL MPV 9.6 (7.0-11.0) fl Gran % 64.9 (50.0-68.0) % Lymph % (Auto) 23.2 (22.0-35.0) % [place] % (Auto) 8.3 H (1.0-6.0) % Eos % (Auto) 3.3 (1.5-5.0) % Baso % (Auto) 0.3 (0.0-3.0) % Gran # 4.88 (1.4-6.5) Lymph # (Auto) 1.7 (1.2-3.4) [place] # (Auto) 0.6 (0.1-0.6) Eos # (Auto) 0.3 (0.0-0.7) Baso # (Auto) 0.02 (0.0-2.0) K/mm3 Sodium (132-148) mmol/L Potassium (3.6-5.0) mmol/L Chloride (98-107) mmol/L Carbon Dioxide (21-33) mmol/L Anion Gap (10-20) BUN (7-21) mg/dL Creatinine (0.8-1.5) mg/dl Est GFR ( Amer) Est GFR (Non-Af Amer) POC Glucose (mg/dL) 156 H (65-110) mg/dL Random Glucose (70-110) mg/dL Hemoglobin A1c (4.2-6.5) % Calcium (8.4-10.5) mg/dL Total Bilirubin (0.2-1.3) mg/dL AST (17-59) U/L ALT (7-56) U/L Alkaline Phosphatase (38-126) U/L Total Protein (5.8-8.3) g/dL Albumin (3.0-4.8) g/dL Globulin gm/dL Albumin/Globulin Ratio (1.1-1.8) Vitamin B12 539 (239-931) pg/mL 08/07/17 08/07/17 Range/Units 17:45 17:45 WBC (4.5-11.0) 10^3/ul RBC (3.5-6.1) 10^6/uL Hgb (14.0-18.0) g/dL Hct (42.0-52.0) % MCV (80.0-105.0) fl MCH (25.0-35.0) pg MCHC (31.0-37.0) g/dl RDW (11.5-14.5) % Plt Count (120.0-450.0) 10^3/uL MPV (7.0-11.0) fl Gran % (50.0-68.0) % Lymph % (Auto) (22.0-35.0) % [place] % (Auto) (1.0-6.0) % Eos % (Auto) (1.5-5.0) % Baso % (Auto) (0.0-3.0) % Gran # (1.4-6.5) Lymph # (Auto) (1.2-3.4) [place] # (Auto) (0.1-0.6) Eos # (Auto) (0.0-0.7) Baso # (Auto) (0.0-2.0) K/mm3 Sodium 146 (132-148) mmol/L Potassium 3.9 (3.6-5.0) mmol/L Chloride 105 (98-107) mmol/L Carbon Dioxide 26 (21-33) mmol/L Anion Gap 19 (10-20) BUN 16 (7-21) mg/dL Creatinine 0.9 (0.8-1.5) mg/dl Est GFR ( Amer) > 60 Est GFR (Non-Af Amer) > 60 POC Glucose (mg/dL) (65-110) mg/dL Random Glucose 181 H (70-110) mg/dL Hemoglobin A1c 7.9 H (4.2-6.5) % Calcium 9.2 (8.4-10.5) mg/dL Total Bilirubin (0.2-1.3) mg/dL AST (17-59) U/L ALT (7-56) U/L Alkaline Phosphatase (38-126) U/L Total Protein (5.8-8.3) g/dL Albumin (3.0-4.8) g/dL Globulin gm/dL Albumin/Globulin Ratio (1.1-1.8) Vitamin B12 (239-931) pg/mL Laboratory Results - last 24 hr 08/07/17 08/07/17 08/07/17 17:45 17:45 17:45 WBC RBC Hgb Hct MCV MCH MCHC RDW Plt Count MPV Gran % Lymph % (Auto) [place] % (Auto) Eos % (Auto) Baso % (Auto) Gran # Lymph # (Auto) [place] # (Auto) Eos # (Auto) Baso # (Auto) Sodium 146 Potassium 3.9 Chloride 105 Carbon Dioxide 26 Anion Gap 19 BUN 16 Creatinine 0.9 Est GFR ( Amer) > 60 Est GFR (Non-Af Amer) > 60 POC Glucose (mg/dL) Random Glucose 181 H Hemoglobin A1c 7.9 H Calcium 9.2 Total Bilirubin AST ALT Alkaline Phosphatase Total Protein Albumin Globulin Albumin/Globulin Ratio Vitamin B12 539 08/07/17 08/08/17 08/08/17 22:39 06:40 06:40 WBC 7.5 RBC 4.87 Hgb 13.5 L Hct 39.9 L MCV 81.9 MCH 27.7 MCHC 33.8 RDW 14.1 Plt Count 328 MPV 9.6 Gran % 64.9 Lymph % (Auto) 23.2 [place] % (Auto) 8.3 H Eos % (Auto) 3.3 Baso % (Auto) 0.3 Gran # 4.88 Lymph # (Auto) 1.7 [place] # (Auto) 0.6 Eos # (Auto) 0.3 Baso # (Auto) 0.02 Sodium 147 Potassium 4.1 Chloride 106 Carbon Dioxide 27 Anion Gap 18 BUN 13 Creatinine 0.9 Est GFR ( Amer) > 60 Est GFR (Non-Af Amer) > 60 POC Glucose (mg/dL) 156 H Random Glucose 158 H Hemoglobin A1c Calcium 8.6 Total Bilirubin 1.9 H AST 24 ALT 28 Alkaline Phosphatase 65 Total Protein 7.8 Albumin 4.0 Globulin 3.8 Albumin/Globulin Ratio 1.0 L Vitamin B12 08/08/17 08/08/17 07:25 11:57 WBC RBC Hgb Hct MCV MCH MCHC RDW Plt Count MPV Gran % Lymph % (Auto) [place] % (Auto) Eos % (Auto) Baso % (Auto) Gran # Lymph # (Auto) [place] # (Auto) Eos # (Auto) Baso # (Auto) Sodium Potassium Chloride Carbon Dioxide Anion Gap BUN Creatinine Est GFR ( Amer) Est GFR (Non-Af Amer) POC Glucose (mg/dL) 152 H 150 H Random Glucose Hemoglobin A1c Calcium Total Bilirubin AST ALT Alkaline Phosphatase Total Protein Albumin Globulin Albumin/Globulin Ratio Vitamin B12 Critical Care Progress Note - Nutrition Nutrition: Nutrition Category Date Time Status Liquid Diet [DIET] Diets 08/08/17 Lunch Ordered Assessment/Plan - Assessment and Plan (Free Text) Assessment: Patient seen and examined on rounds with resident, agree with note with following additions/exceptions: Patient is 82yo male withut sig PMHx a/w AMS, ICH, R frontal lobe with surrounding edema. Patient currently afebrile, BP stable, OFF cardene drip, no focal motor neuro deficits, appropriate, awake, alert Neurology and NSG following, no acute intervention at this time. ICH AMS HTN Recommend: - supp o2 as needed, duonebs PRN - NO ID issues - BP control, goal SBP<140 - hold antiplatelet agents - maintain euthermia, euglycemia - Na>145 - NS - GI ppx - DVT ppx, SCDs - Monitor in MICU critical care time 32 minutes
--- NOTE | 2017-08-08 12:29 | MRI ---
PROCEDURE: MRI BRAIN WITHOUT CONTRAST HISTORY: Hemorrhagic CVA COMPARISON: None. TECHNIQUE: Multiplanar, multisequence MR images of the brain were obtained without intravenous contrast enhancement. FINDINGS: HEMORRHAGE: There is a 3.3 x 4.2 cm acute intraparenchymal hemorrhage in the right frontal lobe. There is a small amount of surrounding edema DWI: No evidence of an acute or early subacute infarction. BRAIN PARENCHYMA: No mass effect or edema. There is a moderate amount of chronic microvascular disease in the periventricular white matter. VENTRICLES: Unremarkable. No hydrocephalus. CRANIUM: Unremarkable. ORBITS: Grossly unremarkable. PARANASAL SINUSES/MASTOIDS: Clear VASCULAR SYSTEM: Skull base flow voids intact. OTHER FINDINGS: None. IMPRESSION: There is a 3.3 x 4.2 cm acute intraparenchymal hemorrhage in the right frontal lobe. No evidence of acute infarct
--- NOTE | 2017-08-08 16:54 | CARD ---
APPROVED REPORT EXAM: Two-dimensional and M-mode echocardiogram with Doppler and color Doppler. INDICATION Hypertension/HCVD 2D DIMENSIONS Left Atrium (2D)4.6 (1.6-4.0cm)IVSd1.2 (0.7-1.1cm) LVDd4.4 (3.9-5.9cm)PWd1.3 (0.7-1.1cm) LVDs2.6 (2.5-4.0cm)FS (%) 40.1 % LVEF (%)71.0 (>50%) M-Mode DIMENSIONS Aortic Root3.50 (2.2-3.7cm)Aortic Cusp Exc.1.70 (1.5-2.0cm) Aortic Valve AoV Peak Dnybynbj776.0cm/Gregory Peak GR.12mmHg Mitral Valve MV E Aqhgxaec03.4cm/sMV A Kzyoptht106.0cm/sE/A ratio0.7 TDI Lateral E' Peak V5.95cm/sMedial E' Peak V4.97cm/sE/Lateral E'14.2 E/Medial E'17.0 Pulmonary Valve PV Peak Noflojoe03.9cm/sPV Peak Grad.3mmHg Tricuspid Valve TR Peak [id number]/sRAP [id number] Peak Gr.17mmHg [id number] LEFT VENTRICLE The left ventricle is normal size. There is normal left ventricular wall thickness. The left ventricular function is normal. The left ventricular ejection fraction is within the normal range. There is normal LV segmental wall motion. Transmitral Doppler flow pattern is Grade I-abnormal relaxation pattern. RIGHT VENTRICLE The right ventricle is normal size. There is normal right ventricular wall thickness. The right ventricular systolic function is normal. ATRIA The left atrium is mildly dilated. The right atrium size is normal. AORTIC VALVE The aortic valve is moderately to severely thickened. No aortic regurgitation is present. There is no aortic valvular stenosis. MITRAL VALVE The mitral valve is moderately thickened. There is no mitral valve regurgitation noted. There is no mitral valve stenosis. TRICUSPID VALVE The tricuspid valve is normal in structure. There is trace tricuspid regurgitation. GREAT VESSELS The aortic root is normal in size. PERICARDIAL EFFUSION There is no pericardial effusion. <Conclusion> The left ventricle is normal size. There is normal left ventricular wall thickness. The left ventricular function is normal. The left ventricular ejection fraction is within the normal range. There is normal LV segmental wall motion. Transmitral Doppler flow pattern is Grade I-abnormal relaxation pattern.
[2017-08-08] MEDS: Nicardipine 20 MG/200 ML 20 MG/200 ML BAG IV PRN ×2 (17:22→21:00)
[2017-08-08] MEDS: Sodium Chloride 0.9% 1,000 ML IV SCH (17:29)
--- NOTE | 2017-08-08 17:33 | CT ---
PROCEDURE: CT Abdomen and Pelvis without intravenous contrast HISTORY: Inguinal Lymphadenopathy VS Mass COMPARISON: None. TECHNIQUE: Without contrast.. Contrast dose: 0 Radiation dose: Total exam DLP = 468.16 mGy-cm. This CT exam was performed using one or more of the following dose reduction techniques: Automated exposure control, adjustment of the mA and/or kV according to patient size, and/or use of iterative reconstruction technique. FINDINGS: LOWER THORAX: Unremarkable. LIVER: Unremarkable. No gross lesion or ductal dilatation. GALLBLADDER AND BILE DUCTS: High attenuation bile consistent with vicarious excretion of intravenous contrast administered for CT angiography of the head on 08/07/2017. No calcified gallstones appreciated. PANCREAS: Unremarkable. No gross lesion or ductal dilatation. SPLEEN: Unremarkable. ADRENALS: Unremarkable. No mass. KIDNEYS AND URETERS: 2 mm nonobstructing right lower pole renal calculus. Right upper pole renal cortical cyst, 2.2 cm. This measures -13 Hounsfield units. No hydronephrosis. VASCULATURE: Unremarkable. No aortic aneurysm. BOWEL: No evidence of bowel obstruction. No abnormal bowel loops. APPENDIX: Unremarkable PERITONEUM: Right inguinal hernia containing cecum, appendix and small intestine. No evidence of obstruction. Left inguinal hernia containing only mesenteric fat. LYMPH NODES: Unremarkable. No enlarged lymph nodes. BLADDER: Unremarkable. REPRODUCTIVE: Normal prostate BONES: No acute fracture. OTHER FINDINGS: None. IMPRESSION: Right inguinal hernia containing cecum, appendix and small intestine without evidence of obstruction. Left inguinal hernia containing only mesenteric fat.
[2017-08-08] MEDS ORDERED: POLYETHYLENE GLYCOL 3350 17 GM/Dose PACKET PO ONE (18:29)
--- NOTE | 2017-08-08 19:31 | CP.PCM.CON ---
History of Present Illness - History of Present Illness History of Present Illness: General Surgery consult for Dr. Cross Consulted for: inguinal hernia Patient is an 82M who denies any significant PMH who was admitted to the ICU for a hemorrhagic stroke. On exam today patient was found to have a large, soft , non-tender swelling in his right inguinal area and underwent a CT scan which showed a very large right inguinal hernia with cecum and ileum in it as well as a fat containing left inguinal hernia. There were no signs of strangulation, inflammation, or obstruction. CT also showed a large amount of stool in the colon. Surgery was consulted. Patient states that he has had a bulge in that area for many years and denies any pain in the area, abdominal pain, nausea, vomiting, diarrhea, melena, hematochezia, or any other symptoms. Patient states that it is always bulging, and he was unaware they could reduce. Spoke with patient's daughter Eleanor over the phone, who does not live with him, who stated she was unaware of any previous hernia but that he does not like doctors and so does not regularly follow up with any physician. PMH: remote history of HTN, not currently treated PSH: denies ALL: NKDA Social: denies any substance use Denies any significant family history Review of Systems - Review of Systems All systems: reviewed and no additional remarkable complaints except (as per HPI ) Past Patient History - Infectious Disease Hx of Infectious Diseases: None - Past Medical History & Family History Past Medical History?: Yes Past Family History: Reviewed and not pertinent - Past Social History Smoking Status: Never Smoked (denies) Alcohol: None Drugs: Denies - CARDIAC Hx Cardiac Disorders: Yes Hx Hypertension: Yes - PULMONARY Hx Respiratory Disorders: No - NEUROLOGICAL Hx Neurological Disorder: Yes (ams, dizzy) - HEENT Hx HEENT Problems: No - RENAL Hx Chronic Kidney Disease: No - ENDOCRINE/METABOLIC Hx Endocrine Disorders: No - HEMATOLOGICAL/ONCOLOGICAL Hx Blood Disorders: No - INTEGUMENTARY Hx Dermatological Problems: Yes Other/Comment: ble leathery dark brown discolored skin, thick hard toenails, dark brown skin to buttocks, multiple dark brown spots to back - MUSCULOSKELETAL/RHEUMATOLOGICAL Hx Falls: No - GASTROINTESTINAL Hx Gastrointestinal Disorders: Yes (lower abd hernia) - GENITOURINARY/GYNECOLOGICAL Hx Incontinence: Yes - PSYCHIATRIC Hx Substance Use: No - SURGICAL HISTORY Hx Surgeries: No Meds Allergies/Adverse Reactions: Allergies Allergy/AdvReac Type Severity Reaction Status Date / Time No Known Allergies Allergy Verified 08/07/17 12:31 - Medications Medications: Current Medications Bisacodyl (Dulcolax) 10 mg RC Q8H [facility] Dexamethasone (Decadron Inj) 2 mg IVP Q6H [facility] Last Admin: 08/08/17 17:10 Dose: 2 mg Docusate Sodium (Colace) 100 mg PO BID [facility] Nicardipine HCl (Cardene Iv Premix) 20 mg in 200 mls @ 50 mls/hr IV .Q4H PRN; Protocol; 5 MG/HR PRN Reason: BPs more then 160 Last Admin: 08/08/17 17:22 Dose: 5 mg/hr, 50 mls/hr Sodium Chloride (Sodium Chloride 0.9%) 1,000 mls @ 100 mls/hr IV .Q10H [facility] Last Admin: 08/08/17 17:29 Dose: 100 mls/hr Levetiracetam 250 mg/ Sodium (Chloride) 102.5 mls @ 460 mls/hr IV Q12 [facility] Last Admin: 08/08/17 10:22 Dose: 460 mls/hr Insulin Human Regular (Humulin R Med) 0 units SC ACHS [facility] PRN Reason: Protocol Last Admin: 08/08/17 17:09 Dose: 3 units Pantoprazole Sodium (Protonix Inj) 40 mg IVP DAILY [facility] Last Admin: 08/08/17 10:00 Dose: 40 mg Polyethylene Glycol (Miralax) 17 gm PO DAILY [facility] Physical Exam - Constitutional Appears: Well, Non-toxic, No Acute Distress - Head Exam Head Exam: ATRAUMATIC, NORMOCEPHALIC - Eye Exam Eye Exam: EOMI, Normal appearance. absent: Conjunctival injection, Scleral icterus - ENT Exam ENT Exam: Mucous Membranes Moist, Normal Oropharynx - Respiratory Exam Respiratory Exam: NORMAL BREATHING PATTERN. absent: Accessory Muscle Use, Respiratory Distress - Cardiovascular Exam Cardiovascular Exam: RRR - GI/Abdominal Exam GI & Abdominal Exam: Soft. absent: Distended, Tenderness - Exam Exam: absent: Circumcision, Scrotal Swelling Additional comments: large right inguinal hernia, soft, non-tender, non-erythematous, able to be partially reduced but immedicately emerges again when released smaller left inguinal hernia, also soft, non-tender, non-erythematous, reducible but recurrent - Extremities Exam Extremities exam: Positive for: pedal pulses present. Negative for: calf tenderness, pedal edema - Neurological Exam Neurological exam: Alert, Oriented x3 - Psychiatric Exam Psychiatric exam: Normal Affect, Normal Mood Additional comments: Patient doesn't seem to have good insight, believing the CT findings of his hernias and his CVA are over-reads and he does not have any serious medical problems - Skin Skin Exam: Dry, Intact, Normal Color, Warm Results - Vital Signs Recent Vital Signs: Last Vital Signs Temp 98.2 F 08/08/17 16:00 Pulse 76 08/08/17 18:00 Resp 20 08/08/17 16:00 BP 141/73 08/08/17 16:00 Pulse Ox 100 08/08/17 16:00 - Labs Result Diagrams: 08/08/17 06:40 08/08/17 06:40 Labs: Laboratory Results - last 24 hr 08/07/17 08/07/17 08/07/17 17:45 17:45 22:39 WBC RBC Hgb Hct MCV MCH MCHC RDW Plt Count MPV Gran % Lymph % (Auto) [place] % (Auto) Eos % (Auto) Baso % (Auto) Gran # Lymph # (Auto) [place] # (Auto) Eos # (Auto) Baso # (Auto) Sodium Potassium Chloride Carbon Dioxide Anion Gap BUN Creatinine Est GFR ( Amer) Est GFR (Non-Af Amer) POC Glucose (mg/dL) 156 H Random Glucose Hemoglobin A1c 7.9 H Calcium Total Bilirubin AST ALT Alkaline Phosphatase Total Protein Albumin Globulin Albumin/Globulin Ratio Vitamin B12 539 08/08/17 08/08/17 08/08/17 06:40 06:40 07:25 WBC 7.5 RBC 4.87 Hgb 13.5 L Hct 39.9 L MCV 81.9 MCH 27.7 MCHC 33.8 RDW 14.1 Plt Count 328 MPV 9.6 Gran % 64.9 Lymph % (Auto) 23.2 [place] % (Auto) 8.3 H Eos % (Auto) 3.3 Baso % (Auto) 0.3 Gran # 4.88 Lymph # (Auto) 1.7 [place] # (Auto) 0.6 Eos # (Auto) 0.3 Baso # (Auto) 0.02 Sodium 147 Potassium 4.1 Chloride 106 Carbon Dioxide 27 Anion Gap 18 BUN 13 Creatinine 0.9 Est GFR ( Amer) > 60 Est GFR (Non-Af Amer) > 60 POC Glucose (mg/dL) 152 H Random Glucose 158 H Hemoglobin A1c Calcium 8.6 Total Bilirubin 1.9 H AST 24 ALT 28 Alkaline Phosphatase 65 Total Protein 7.8 Albumin 4.0 Globulin 3.8 Albumin/Globulin Ratio 1.0 L Vitamin B12 08/08/17 08/08/17 11:57 16:53 WBC RBC Hgb Hct MCV MCH MCHC RDW Plt Count MPV Gran % Lymph % (Auto) [place] % (Auto) Eos % (Auto) Baso % (Auto) Gran # Lymph # (Auto) [place] # (Auto) Eos # (Auto) Baso # (Auto) Sodium Potassium Chloride Carbon Dioxide Anion Gap BUN Creatinine Est GFR ( Amer) Est GFR (Non-Af Amer) POC Glucose (mg/dL) 150 H 234 H Random Glucose Hemoglobin A1c Calcium Total Bilirubin AST ALT Alkaline Phosphatase Total Protein Albumin Globulin Albumin/Globulin Ratio Vitamin B12 - Imaging and Cardiology CT scan - pelvis Status: Image reviewed by me, Report reviewed by me Assessment & Plan - Assessment and Plan (Free Text) Assessment: 82M with BL reducible, non-obstructing inguinal hernias and constipation Plan: No indication for emergent surgical intervention at this time Monitor hernias for any signs of strangulation--erythema, tenderness, fevers, chills, tachycardia Administer stool softeners and enemas if patient tolerates to reduct colon contents Continue medical management per primary Discussed with Dr. Cross, further recs per him Nayely Ho, Pgy2
[2017-08-08 21:21] LABS: BLOOD UREA NITROGEN 13 mg/dL (7-21); CALCIUM 8.8 mg/dL (8.4-10.5); GFR AFRICAN-AMERICAN > 60; GFR NON-AFRICAN AMERICAN > 60
[2017-08-09 06:22] LABS: GRAN # 9.37 (1.4-6.5); GRAN % 88.6 % (50.0-68.0); HEMOGLOBIN 13.7 g/dL (14.0-18.0); LYMPH % 9.8 % (22.0-35.0); MEAN CELL VOLUME 80.7 fl (80.0-105.0); MEAN CORPUSCULAR HEMOGLOBIN 27.8 pg (25.0-35.0); MEAN CORPUSCULAR HGB CONC 34.4 g/dl (31.0-37.0); MEAN PLATELET VOLUME 9.7 fl (7.0-11.0); MONO # 0.2 (0.1-0.6); MONO % 1.6 % (1.0-6.0); RBC 4.93 10^6/uL (3.5-6.1); WHITE BLOOD COUNT 10.6 10^3/ul (4.5-11.0)
--- NOTE | 2017-08-09 07:43 | CP.PCM.PN ---
Subjective - Date & Time of Evaluation Date of Evaluation: 08/09/17 Time of Evaluation: 07:30 - Subjective Subjective: General Surgery Note for Dr. Cross Patient seen and examined at bedside. No acute event overnight. Patient denies any pain. He has no complaints at this time. Objective - Vital Signs/Intake and Output Vital Signs (last 24 hours): Temp Pulse Resp BP Pulse Ox 98 F 56 L 18 157/89 H 100 08/09/17 04:00 08/09/17 06:40 08/09/17 06:40 08/09/17 06:30 08/09/17 06:40 Intake and Output: 08/09/17 08/09/17 06:59 18:59 Intake Total 1220 Output Total 550 Balance 670 - Medications Medications: Current Medications Bisacodyl (Dulcolax) 10 mg RC Q8H [facility] Last Admin: 08/08/17 19:40 Dose: 10 mg Dexamethasone (Decadron Inj) 2 mg IVP Q6H [facility] Last Admin: 08/08/17 21:47 Dose: 2 mg Docusate Sodium (Colace) 100 mg PO BID [facility] Nicardipine HCl (Cardene Iv Premix) 20 mg in 200 mls @ 50 mls/hr IV .Q4H PRN; Protocol; 5 MG/HR PRN Reason: BPs more then 160 Last Admin: 08/08/17 21:00 Dose: 1 mg/hr, 10 mls/hr Sodium Chloride (Sodium Chloride 0.9%) 1,000 mls @ 100 mls/hr IV .Q10H [facility] Last Admin: 08/08/17 17:29 Dose: 100 mls/hr Levetiracetam 250 mg/ Sodium (Chloride) 102.5 mls @ 460 mls/hr IV Q12 [facility] Last Admin: 08/08/17 21:48 Dose: 460 mls/hr Insulin Human Regular (Humulin R Med) 0 units SC ACHS [facility] PRN Reason: Protocol Last Admin: 08/08/17 17:09 Dose: 3 units Pantoprazole Sodium (Protonix Inj) 40 mg IVP DAILY [facility] Last Admin: 08/08/17 10:00 Dose: 40 mg Polyethylene Glycol (Miralax) 17 gm PO DAILY [facility] - Labs Labs: 08/09/17 05:30 08/08/17 21:00 PT 12.0 SECONDS (9.4-12.5) 08/07/17 13:20 INR 1.05 (0.93-1.08) 08/07/17 13:20 APTT 29.4 Seconds (25.1-36.5) 08/07/17 13:20 - Additional Findings Additional findings: Constitutional Appears: Well, Non-toxic, No Acute Distress - Head Exam Head Exam: ATRAUMATIC, NORMOCEPHALIC - Eye Exam Eye Exam: EOMI, Normal appearance. absent: Conjunctival injection, Scleral icterus - ENT Exam ENT Exam: Mucous Membranes Moist, Normal Oropharynx - Respiratory Exam Respiratory Exam: NORMAL BREATHING PATTERN. absent: Accessory Muscle Use, Respiratory Distress - Cardiovascular Exam Cardiovascular Exam: RRR - GI/Abdominal Exam GI & Abdominal Exam: Soft. absent: Distended, Tenderness - Exam Exam: absent: Circumcision, Scrotal Swelling Additional comments: large right inguinal hernia, soft, non-tender, non-erythematous, reducible smaller left inguinal hernia, also soft, non-tender, non-erythematous, reducible - Extremities Exam Extremities exam: Positive for: pedal pulses present. Negative for: calf tenderness, pedal edema - Neurological Exam Neurological exam: Alert, Oriented x3 - Psychiatric Exam Psychiatric exam: Flat Affect Additional comments: Poor insight - Skin Skin Exam: Dry, Intact, Normal Color, Warm Assessment and Plan - Assessment and Plan (Free Text) Assessment: 82M with bilateral reducible, non-obstructing inguinal hernias and constipation Plan: No indication for surgical intervention at this time Monitor hernias for any signs of obstruction/strangulation Medical management per primary and ICU Further recommendations as per Dr. Tay Ware PGY1
[2017-08-09] MEDS: Insulin Reg-MEDIUM-Coverage SC SCH ×4 (08:30→23:55)
[2017-08-09] MEDS: POLYETHYLENE GLYCOL 3350 17 GM/Dose PACKET PO SCH (09:55)
[2017-08-09] MEDS: Dexamethasone 4 mg/1 ml IVP SCH ×3 (11:14→23:59)
--- NOTE | 2017-08-09 11:55 | CP.CCUPN ---
<Montez Colby - Last Filed: 08/09/17 11:52> CCU Subjective - Physician Review Events Since Last Encounter (Free Text): 08/09/17 08:00 Patient seen and examined at bedside, no acute events overnight. Patient was found to have a large hernia in his right inguinal area that increased in size since admission. Patient denies any complaints however, including pain at that location. CCU Objective - Vital Signs / Intake & Output Vital Signs (Last 4 hours): Vital Signs BP 08/09/17 08:27 175/97 H Intake and Output (Last 8hrs): Intake & Output 08/08/17 08/09/17 08/09/17 22:59 06:59 14:59 Intake Total 200 1020 100 Output Total 550 Balance 200 470 100 Weight 77.337 kg Intake: IV 200 900 100 Left Antecubital 900 Oral 120 Output: Urine 550 Condom 550 Other: # Bowel Movements 1 - Physical Exam Head: Positive for: Atraumatic, Normocephalic Pupils: Positive for: PERRL Extroacular Muscles: Positive for: EOMI Conjunctiva: Positive for: Normal Mouth: Positive for: Moist Mucous Membranes Neck: Positive for: Normal Range of Motion Respiratory/Chest: Positive for: Clear to Auscultation. Negative for: Respiratory Distress, Wheezes, Rales, Rhonchi Cardiovascular: Positive for: Regular Rate and Rhythm, Normal S1, S2. Negative for: Murmurs, Rub, Gallop Abdomen: Negative for: Tenderness, Distention, Rebound, Guarding Upper Extremity: Positive for: Normal Inspection. Negative for: Cyanosis, Edema Lower Extremity: Positive for: Edema (1+ b/l), NORMAL PULSES (decreased DP pulse on left). Negative for: CALF TENDERNESS, Francisco's Sign, Tenderness Neurological: Positive for: GCS=15, CN II-XII Intact, Speech Normal, Motor Func Grossly Intact Skin: Positive for: Warm, Dry, Normal Color. Negative for: Rashes Psychiatric: Positive for: Alert. Negative for: Oriented x 3 (only oriented to self) - Medications Active Medications: Active Medications Generic Name Dose Route Start Last Admin Trade Name Freq PRN Reason Stop Dose Admin Bisacodyl 10 mg 08/08/17 18:30 08/09/17 09:57 Dulcolax RC Not Given Q8H [facility] Dexamethasone 2 mg 08/08/17 10:00 08/09/17 11:14 Decadron Inj IVP 2 mg Q6H [facility] Administration Docusate Sodium 100 mg 08/09/17 10:00 08/09/17 10:08 Colace PO Not Given BID [facility] Nicardipine HCl 20 mg in 200 mls @ 50 mls/hr 08/07/17 15:01 08/09/17 07:20 Cardene Iv Premix IV 0 mg/hr .Q4H PRN 0 mls/hr BPs more then 160 Titration Protocol 5 MG/HR Levetiracetam 250 mg/ Sodium 102.5 mls @ 460 mls/hr 08/08/17 10:00 08/09/17 09:56 Chloride IV 460 mls/hr Q12 [facility] Administration Insulin Human Regular 0 units 08/07/17 22:00 08/09/17 08:30 Humulin R Med SC 1 units ACHS [facility] Administration Protocol Lisinopril 5 mg 08/09/17 10:00 Zestril PO DAILY [facility] Pantoprazole Sodium 40 mg 08/10/17 07:30 Protonix Ec Tab PO ACB [facility] Polyethylene Glycol 17 gm 08/09/17 10:00 08/09/17 09:55 Miralax PO 17 gm DAILY [facility] Administration - Patient Studies Lab Studies: Lab Studies 08/09/17 08/09/17 08/09/17 Range/Units 07:13 06:13 05:30 WBC 10.6 D (4.5-11.0) 10^3/ul RBC 4.93 (3.5-6.1) 10^6/uL Hgb 13.7 L (14.0-18.0) g/dL Hct 39.8 L (42.0-52.0) % MCV 80.7 (80.0-105.0) fl MCH 27.8 (25.0-35.0) pg MCHC 34.4 (31.0-37.0) g/dl RDW 14.0 (11.5-14.5) % Plt Count 350 (120.0-450.0) 10^3/uL MPV 9.7 (7.0-11.0) fl Gran % 88.6 H (50.0-68.0) % Lymph % (Auto) 9.8 L (22.0-35.0) % [place] % (Auto) 1.6 (1.0-6.0) % Eos % (Auto) 0.0 L (1.5-5.0) % Baso % (Auto) 0.0 (0.0-3.0) % Gran # 9.37 H (1.4-6.5) Lymph # (Auto) 1.0 L (1.2-3.4) [place] # (Auto) 0.2 (0.1-0.6) Eos # (Auto) 0.0 (0.0-0.7) Baso # (Auto) 0.00 (0.0-2.0) K/mm3 Sodium (132-148) mmol/L Potassium (3.6-5.0) mmol/L Chloride (98-107) mmol/L Carbon Dioxide (21-33) mmol/L Anion Gap (10-20) BUN (7-21) mg/dL Creatinine (0.8-1.5) mg/dl Est GFR ( Amer) Est GFR (Non-Af Amer) POC Glucose (mg/dL) 186 H 118 H (65-110) mg/dL Random Glucose (70-110) mg/dL Calcium (8.4-10.5) mg/dL 08/09/17 08/08/17 08/08/17 Range/Units 00:22 21:00 16:53 WBC (4.5-11.0) 10^3/ul RBC (3.5-6.1) 10^6/uL Hgb (14.0-18.0) g/dL Hct (42.0-52.0) % MCV (80.0-105.0) fl MCH (25.0-35.0) pg MCHC (31.0-37.0) g/dl RDW (11.5-14.5) % Plt Count (120.0-450.0) 10^3/uL MPV (7.0-11.0) fl Gran % (50.0-68.0) % Lymph % (Auto) (22.0-35.0) % [place] % (Auto) (1.0-6.0) % Eos % (Auto) (1.5-5.0) % Baso % (Auto) (0.0-3.0) % Gran # (1.4-6.5) Lymph # (Auto) (1.2-3.4) [place] # (Auto) (0.1-0.6) Eos # (Auto) (0.0-0.7) Baso # (Auto) (0.0-2.0) K/mm3 Sodium 143 (132-148) mmol/L Potassium 4.7 (3.6-5.0) mmol/L Chloride 106 (98-107) mmol/L Carbon Dioxide 23 (21-33) mmol/L Anion Gap 19 (10-20) BUN 13 (7-21) mg/dL Creatinine 0.9 (0.8-1.5) mg/dl Est GFR ( Amer) > 60 Est GFR (Non-Af Amer) > 60 POC Glucose (mg/dL) 223 H 234 H (65-110) mg/dL Random Glucose 255 H (70-110) mg/dL Calcium 8.8 (8.4-10.5) mg/dL 08/08/17 Range/Units 11:57 WBC (4.5-11.0) 10^3/ul RBC (3.5-6.1) 10^6/uL Hgb (14.0-18.0) g/dL Hct (42.0-52.0) % MCV (80.0-105.0) fl MCH (25.0-35.0) pg MCHC (31.0-37.0) g/dl RDW (11.5-14.5) % Plt Count (120.0-450.0) 10^3/uL MPV (7.0-11.0) fl Gran % (50.0-68.0) % Lymph % (Auto) (22.0-35.0) % [place] % (Auto) (1.0-6.0) % Eos % (Auto) (1.5-5.0) % Baso % (Auto) (0.0-3.0) % Gran # (1.4-6.5) Lymph # (Auto) (1.2-3.4) [place] # (Auto) (0.1-0.6) Eos # (Auto) (0.0-0.7) Baso # (Auto) (0.0-2.0) K/mm3 Sodium (132-148) mmol/L Potassium (3.6-5.0) mmol/L Chloride (98-107) mmol/L Carbon Dioxide (21-33) mmol/L Anion Gap (10-20) BUN (7-21) mg/dL Creatinine (0.8-1.5) mg/dl Est GFR ( Amer) Est GFR (Non-Af Amer) POC Glucose (mg/dL) 150 H (65-110) mg/dL Random Glucose (70-110) mg/dL Calcium (8.4-10.5) mg/dL Laboratory Results - last 24 hr 08/08/17 08/08/17 08/08/17 11:57 16:53 21:00 WBC RBC Hgb Hct MCV MCH MCHC RDW Plt Count MPV Gran % Lymph % (Auto) [place] % (Auto) Eos % (Auto) Baso % (Auto) Gran # Lymph # (Auto) [place] # (Auto) Eos # (Auto) Baso # (Auto) Sodium 143 Potassium 4.7 Chloride 106 Carbon Dioxide 23 Anion Gap 19 BUN 13 Creatinine 0.9 Est GFR ( Amer) > 60 Est GFR (Non-Af Amer) > 60 POC Glucose (mg/dL) 150 H 234 H Random Glucose 255 H Calcium 8.8 08/09/17 08/09/17 08/09/17 00:22 05:30 06:13 WBC 10.6 D RBC 4.93 Hgb 13.7 L Hct 39.8 L MCV 80.7 MCH 27.8 MCHC 34.4 RDW 14.0 Plt Count 350 MPV 9.7 Gran % 88.6 H Lymph % (Auto) 9.8 L [place] % (Auto) 1.6 Eos % (Auto) 0.0 L Baso % (Auto) 0.0 Gran # 9.37 H Lymph # (Auto) 1.0 L [place] # (Auto) 0.2 Eos # (Auto) 0.0 Baso # (Auto) 0.00 Sodium Potassium Chloride Carbon Dioxide Anion Gap BUN Creatinine Est GFR ( Amer) Est GFR (Non-Af Amer) POC Glucose (mg/dL) 223 H 118 H Random Glucose Calcium 08/09/17 07:13 WBC RBC Hgb Hct MCV MCH MCHC RDW Plt Count MPV Gran % Lymph % (Auto) [place] % (Auto) Eos % (Auto) Baso % (Auto) Gran # Lymph # (Auto) [place] # (Auto) Eos # (Auto) Baso # (Auto) Sodium Potassium Chloride Carbon Dioxide Anion Gap BUN Creatinine Est GFR ( Amer) Est GFR (Non-Af Amer) POC Glucose (mg/dL) 186 H Random Glucose Calcium Fingerstick Blood Sugar Results: 186 Critical Care Progress Note - Nutrition Nutrition: Nutrition Category Date Time Status Liquid Diet [DIET] Diets 08/08/17 Lunch Ordered Assessment/Plan - Assessment and Plan (Free Text) Assessment: 82 year old male with no subjective medical history under ICU care for altered mental status 2/[address] head showed Acute hemorrhage in R frontal lobe with small surrounding edema; MRI shows the same with slightly bigger dimensions, but patient is clinically stable. CTA H/N showed no occlusion. CBC, CMP, and coags are stable. Patient' s baseline is unknown, but his daughter gives subjective account of altered mentation. Plan: Neuro - Neurology Consult: Dr. Dooley - no antiplatelets for 3 weeks, give prophylactic keppra at q12 250, Dexamethasone 2 q6 - Neurosurg Consult: No further intervention - Maintain normothermia Cardio - Maintain MAP > 65 - Cardene drip d/c'd - give Lisinopril 5 and Norvasc 10 PO Pulm - Monitor airway protection - Maintain sat > 92% GI - Protonix DVT PPX Renal/ - Maintain euvolemia Heme - No DVT ppx given hemorrhage Endo - Maintain euglycemia ID - No intervention Dispo: Awaiting recommendations per Neurosurgery <Santi Marrufo - Last Filed: 08/09/17 12:03> CCU Objective - Vital Signs / Intake & Output Vital Signs (Last 4 hours): Vital Signs BP 08/09/17 08:27 175/97 H Intake and Output (Last 8hrs): Intake & Output 08/08/17 08/09/17 08/09/17 22:59 06:59 14:59 Intake Total 200 1020 100 Output Total 550 Balance 200 470 100 Weight 170 lb 8 oz Intake: IV 200 900 100 Left Antecubital 900 Oral 120 Output: Urine 550 Condom 550 Other: # Bowel Movements 1 - Medications Active Medications: Active Medications Generic Name Dose Route Start Last Admin Trade Name Freq PRN Reason Stop Dose Admin Bisacodyl 10 mg 08/08/17 18:30 08/09/17 09:57 Dulcolax RC Not Given Q8H [facility] Dexamethasone 2 mg 08/08/17 10:00 08/09/17 11:14 Decadron Inj IVP 2 mg Q6H [facility] Administration Docusate Sodium 100 mg 08/09/17 10:00 08/09/17 10:08 Colace PO Not Given BID [facility] Nicardipine HCl 20 mg in 200 mls @ 50 mls/hr 08/07/17 15:01 08/09/17 07:20 Cardene Iv Premix IV 0 mg/hr .Q4H PRN 0 mls/hr BPs more then 160 Titration Protocol 5 MG/HR Levetiracetam 250 mg/ Sodium 102.5 mls @ 460 mls/hr 08/08/17 10:00 08/09/17 09:56 Chloride IV 460 mls/hr Q12 [facility] Administration Insulin Human Regular 0 units 08/07/17 22:00 08/09/17 08:30 Humulin R Med SC 1 units ACHS [facility] Administration Protocol Lisinopril 5 mg 08/09/17 10:00 Zestril PO DAILY [facility] Pantoprazole Sodium 40 mg 08/10/17 07:30 Protonix Ec Tab PO ACB [facility] Polyethylene Glycol 17 gm 08/09/17 10:00 08/09/17 09:55 Miralax PO 17 gm DAILY [facility] Administration - Patient Studies Lab Studies: Lab Studies 08/09/17 08/09/17 08/09/17 Range/Units 07:13 06:13 05:30 WBC 10.6 D (4.5-11.0) 10^3/ul RBC 4.93 (3.5-6.1) 10^6/uL Hgb 13.7 L (14.0-18.0) g/dL Hct 39.8 L (42.0-52.0) % MCV 80.7 (80.0-105.0) fl MCH 27.8 (25.0-35.0) pg MCHC 34.4 (31.0-37.0) g/dl RDW 14.0 (11.5-14.5) % Plt Count 350 (120.0-450.0) 10^3/uL MPV 9.7 (7.0-11.0) fl Gran % 88.6 H (50.0-68.0) % Lymph % (Auto) 9.8 L (22.0-35.0) % [place] % (Auto) 1.6 (1.0-6.0) % Eos % (Auto) 0.0 L (1.5-5.0) % Baso % (Auto) 0.0 (0.0-3.0) % Gran # 9.37 H (1.4-6.5) Lymph # (Auto) 1.0 L (1.2-3.4) [place] # (Auto) 0.2 (0.1-0.6) Eos # (Auto) 0.0 (0.0-0.7) Baso # (Auto) 0.00 (0.0-2.0) K/mm3 Sodium (132-148) mmol/L Potassium (3.6-5.0) mmol/L Chloride (98-107) mmol/L Carbon Dioxide (21-33) mmol/L Anion Gap (10-20) BUN (7-21) mg/dL Creatinine (0.8-1.5) mg/dl Est GFR ( Amer) Est GFR (Non-Af Amer) POC Glucose (mg/dL) 186 H 118 H (65-110) mg/dL Random Glucose (70-110) mg/dL Calcium (8.4-10.5) mg/dL 08/09/17 08/08/17 08/08/17 Range/Units 00:22 21:00 16:53 WBC (4.5-11.0) 10^3/ul RBC (3.5-6.1) 10^6/uL Hgb (14.0-18.0) g/dL Hct (42.0-52.0) % MCV (80.0-105.0) fl MCH (25.0-35.0) pg MCHC (31.0-37.0) g/dl RDW (11.5-14.5) % Plt Count (120.0-450.0) 10^3/uL MPV (7.0-11.0) fl Gran % (50.0-68.0) % Lymph % (Auto) (22.0-35.0) % [place] % (Auto) (1.0-6.0) % Eos % (Auto) (1.5-5.0) % Baso % (Auto) (0.0-3.0) % Gran # (1.4-6.5) Lymph # (Auto) (1.2-3.4) Kerr # (Auto) (0.1-0.6) Eos # (Auto) (0.0-0.7) Baso # (Auto) (0.0-2.0) K/mm3 Sodium 143 (132-148) mmol/L Potassium 4.7 (3.6-5.0) mmol/L Chloride 106 (98-107) mmol/L Carbon Dioxide 23 (21-33) mmol/L Anion Gap 19 (10-20) BUN 13 (7-21) mg/dL Creatinine 0.9 (0.8-1.5) mg/dl Est GFR ( Amer) > 60 Est GFR (Non-Af Amer) > 60 POC Glucose (mg/dL) 223 H 234 H (65-110) mg/dL Random Glucose 255 H (70-110) mg/dL Calcium 8.8 (8.4-10.5) mg/dL Laboratory Results - last 24 hr 08/08/17 08/08/17 08/09/17 16:53 21:00 00:22 WBC RBC Hgb Hct MCV MCH MCHC RDW Plt Count MPV Gran % Lymph % (Auto) Kerr % (Auto) Eos % (Auto) Baso % (Auto) Gran # Lymph # (Auto) Kerr # (Auto) Eos # (Auto) Baso # (Auto) Sodium 143 Potassium 4.7 Chloride 106 Carbon Dioxide 23 Anion Gap 19 BUN 13 Creatinine 0.9 Est GFR ( Amer) > 60 Est GFR (Non-Af Amer) > 60 POC Glucose (mg/dL) 234 H 223 H Random Glucose 255 H Calcium 8.8 08/09/17 08/09/17 08/09/17 05:30 06:13 07:13 WBC 10.6 D RBC 4.93 Hgb 13.7 L Hct 39.8 L MCV 80.7 MCH 27.8 MCHC 34.4 RDW 14.0 Plt Count 350 MPV 9.7 Gran % 88.6 H Lymph % (Auto) 9.8 L Kerr % (Auto) 1.6 Eos % (Auto) 0.0 L Baso % (Auto) 0.0 Gran # 9.37 H Lymph # (Auto) 1.0 L Kerr # (Auto) 0.2 Eos # (Auto) 0.0 Baso # (Auto) 0.00 Sodium Potassium Chloride Carbon Dioxide Anion Gap BUN Creatinine Est GFR ( Amer) Est GFR (Non-Af Amer) POC Glucose (mg/dL) 118 H 186 H Random Glucose Calcium Critical Care Progress Note - Nutrition Nutrition: Nutrition Category Date Time Status Liquid Diet [DIET] Diets 08/08/17 Lunch Ordered Assessment/Plan - Assessment and Plan (Free Text) Assessment: Patient seen and examined on rounds with resident, agree with note with following additions/exceptions: Patient is 82yo male withut sig PMHx a/w AMS, ICH, R frontal lobe with surrounding edema. Patient currently afebrile, BP stable, OFF cardene drip, no focal motor neuro deficits, appropriate, awake, alert Neurology and NSG following, no acute intervention at this time. Started on PO BP meds. ICH AMS HTN Recommend: - supp o2 as needed, duonebs PRN - NO ID issues - BP control, goal SBP<140, start Norvasc, ACEI - hold antiplatelet agents - maintain euthermia, euglycemia - Na>145 - NS - GI ppx - DVT ppx, SCDs - transfer to remote tele
--- NOTE | 2017-08-09 15:56 | PN ---
DATE: 08/09/2017 SUBJECTIVE: I saw him in the Intensive Care Unit resting comfortably in bed. He is alert. He tells me he feels great. He is eating a little bit better now. They started him on fluids. He is on premixed Cardene, Colace, Decadron, Dulcolax, insulin, Keppra IV, MiraLax, Protonix and IV fluids. PHYSICAL EXAMINATION: VITAL SIGNS: Temperature 98, 55 pulse, 163/91 blood pressure, it is also 175/97. He is on a premix Cardene to get it down, 18 respiratory rate, 100% O2 sat. HEENT: Head is atraumatic, normocephalic. HEART: Regular rate. LUNGS: Decreased breath sounds, but clear. ABDOMEN: Soft. EXTREMITIES: No edema. LABORATORY DATA: He has a 10.6 white count, 13.7 hemoglobin, 39.8 hematocrit with 350 platelets. He has a 143 sodium, potassium 4.7, BUN 30, creatinine 0.9, GFR is greater than 60. Last blood sugar was 118, calcium is 8.8. PLAN: We will check his labs tomorrow and I will call the unit about getting his blood pressure a little bit more under control. 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 Stevenson and also, his daughter. get his blood pressure down and then, change him into tablets. Frankie Shine DO MTDGabe
[2017-08-09 16:26] LABS: BLOOD UREA NITROGEN 18 mg/dL (7-21); CALCIUM 8.7 mg/dL (8.4-10.5); GFR AFRICAN-AMERICAN > 60; GFR NON-AFRICAN AMERICAN > 60
--- NOTE | 2017-08-09 19:26 | CON ---
DATE: 08/09/2017 CARDIOLOGY CONSULTATION HISTORY OF PRESENT ILLNESS: The patient is an 82-year-old male who presents with CVA. He was found to have hemorrhagic CVA on CT scan. The patient's past medical history includes hypertension, no previous cardiac history. No diabetes mellitus noted. Currently the patient is without chest pain, without shortness of breath. He is awake, alert and able to take p.o. fluids. SOCIAL HISTORY: Unremarkable. REVIEW OF SYSTEMS: Unremarkable. PHYSICAL EXAMINATION: VITAL SIGNS: Blood pressure is 175 systolic, heart rate is in the 50s. Sinus bradycardia. NECK: Negative JVD. LUNGS: Without rales. HEART: With S1, S2. EXTREMITIES: Without edema. LABORATORY DATA: His BUN and creatinine unremarkable. Glucose is 255. Hemoglobin is 13.7. Echocardiogram reveals good LV function with LVH. IMPRESSION: 1. Hemorrhagic cerebrovascular accident. 2. Hypertension. 3. Diabetes mellitus. 4. Weakness. PLAN: Given these findings, we will add Norvasc to his regimen. I have discussed the findings with the patient and daughter in detail. Christiano Stevenson MD
--- NOTE | 2017-08-10 00:49 | PN ---
DATE: 08/09/2017 SUBJECTIVE: Patient is a little bit confused, not in distress, comfortable. No seizure. The MRI showed a 3.3 x 4.2 cm intraparenchymal, right frontal hemorrhage. The patient follows simple commands. PHYSICAL EXAMINATION: GENERAL: An 82-year-old male, spelled with altered mental state. HEENT: Normocephalic, atraumatic. NECK: Supple. NEUROLOGIC: Awake, oriented to self only. Cranial nerves II through XII were tested. Pupils reactive. Spontaneous movement of the extremities noted. Deep tendon reflexes are 1+. Plantars are downgoing. Sensory appears intact. Cerebellar, gait deferred. IMPRESSION: An 82-year-old male with right frontal hemorrhage and patient is on Keppra. Continue present management. We will follow up. Sandeep Dooley MD
[2017-08-10] MEDS: Dexamethasone 4 mg/1 ml IVP SCH ×2 (05:41→11:27)
[2017-08-10 06:16] VITALS: O2SAT 99
[2017-08-10 06:34] LABS: GRAN # 11.56 (1.4-6.5); GRAN % 86.4 % (50.0-68.0); HEMOGLOBIN 13.3 g/dL (14.0-18.0); LYMPH # 1.4 (1.2-3.4); LYMPH % 10.5 % (22.0-35.0); MEAN CORPUSCULAR HEMOGLOBIN 27.4 pg (25.0-35.0); MEAN CORPUSCULAR HGB CONC 34.2 g/dl (31.0-37.0); MEAN PLATELET VOLUME 9.7 fl (7.0-11.0); MONO # 0.4 (0.1-0.6); MONO % 3.1 % (1.0-6.0); RBC 4.86 10^6/uL (3.5-6.1); RED CELL DISTRIBUTION WIDTH 14.1 % (11.5-14.5); WHITE BLOOD COUNT 13.4 10^3/ul (4.5-11.0)
[2017-08-10 07:16] LABS: ALBUMIN 4.1 g/dL (3.0-4.8); ALT/SGPT 21 U/L (7-56); AST/SGOT 20 U/L (17-59); BLOOD UREA NITROGEN 22 mg/dL (7-21); CALCIUM 8.9 mg/dL (8.4-10.5); GFR AFRICAN-AMERICAN > 60; GFR NON-AFRICAN AMERICAN > 60
[2017-08-10] MEDS ORDERED: Pantoprazole 40 mg EC Tab PO SCH (07:30)
--- NOTE | 2017-08-10 08:19 | CON ---
DATE: 08/08/2017 HISTORY OF PRESENT ILLNESS: This is an 82-year-old gentleman that apparently has been acting a little foggy for the past week or so. He was ultimately brought into the hospital by his daughter on 08/07/2017 and was found to be quite confused. Had a CT of the brain that showed a right frontal hemorrhage. Neurosurgical evaluation was requested. On interviewing him today, it is difficult to get any useful information. He perseverates and is more interested in asking questions than giving information. Again from the EMR on his daughter, the history is as above. The rest of his past medical history, medications, allergies, etc., reviewed in the EMR. PHYSICAL EXAMINATION: NEUROLOGIC: He is bright, awake, and alert. He can tell me his name, that he is in the hospital, but does not know the date. He does follow all commands, but again speech is fluent, but he perseverates, repeats the same questions, etc. Pupils are equal and reactive. EOMs are full. Face is symmetric. He has good strength in all four extremities. Sensory exam is grossly intact. LABORATORY DATA: CT of the brain documents a [id number] sized intraparenchymal hemorrhage in the right frontal lobe. It has a very minimal mass effect. An MRI of the brain was just performed and basically confirms the above. No gadolinium was given; therefore, it is not very useful. IMPRESSION AND PLAN: The location of the hemorrhage is more consistent with a metastasis than a hypertensive bleed, although that is certainly possible. Certainly, there is a need to rule out an underlying lesion. This is going to be difficult in the phase of the acute solid hemorrhage. Therefore, my recommendation would be to repeat the MRI this time with gadolinium in 10 to 14 days. There is certainly no neurosurgical involvement required at this point in time. Anderson Snyder MD
[2017-08-10] MEDS: POLYETHYLENE GLYCOL 3350 17 GM/Dose PACKET PO SCH (11:27)
[2017-08-10] MEDS ORDERED: Insulin Reg-MEDIUM-Coverage SC SCH (11:30)
--- NOTE | 2017-08-10 11:55 | PN ---
DATE: 08/10/2017 CARDIOLOGY FOLLOWUP SUBJECTIVE: The patient is ambulating on the floor with assistance. No shortness of breath noted. PHYSICAL EXAMINATION: VITAL SIGNS: Blood pressure is 151/98, the heart rates in the 60s. NECK: Negative JVD. LUNGS: Without rales. HEART: With S1, S2. EXTREMITIES: Without edema. LABORATORY DATA: Hemoglobin is 13.3, BUN and creatinine is 22 and 1. The glucose is 238. IMPRESSION: 1. Status post cerebrovascular accident. 2. Hypertension. 3. Diabetes mellitus. 4. Weakness, which is improving. PLAN: Given these findings, we will continue his Norvasc 10 daily. We will add low-dose hydrochlorothiazide to his regimen. Christiano Stevenson MD
--- NOTE | 2017-08-10 15:41 | PN ---
DATE: 08/10/2017 I saw Gera resting comfortably in bed. He tells me he has got no complaints. No headaches. No blurred vision. No problems with chest pain or shortness of breath and he is trying to eat, but he is having a cerebral bleed. He has a 97.5 temperature, 68 pulse, blood pressure was 116/65 and it bounced up to 151/98. He is still on a Cardene drip. I am going to add clonidine to his Norvasc and his Cardene drip. Await Cardiology response. Respiratory rate is 20, 99% O2 saturation. Head is atraumatic, normocephalic. Heart has regular rate. Lungs with decreased breath sounds, but clear. Abdomen is soft. Extremities, no edema. He is on Cardene IV, Colace, Decadron to decrease his swelling, Dulcolax. I will put him on insulin coverage for the elevated blood sugars from the Decadron. He is on IV Keppra for seizures, MiraLax, Protonix, Zestril and clonidine. White count 13.4 from the steroids, 13.3 hemoglobin, 38.9 hematocrit with 357 platelets. Sodium 143, potassium 4.4, BUN 22, creatinine 1, GFR greater than 60. Last blood sugar was 215 200, they put him on insulin coverage, was on the steroids. Calcium is 8.9, total bili is 1.4, AST is 20, ALT is 21, alkaline phosphatase 59, total protein is 8. He is being seen by Neurology, Cardiology, Surgery and Neurosurgery. He has a right frontal hemorrhage, on Keppra and Decadron and that MRI shows that the cerebral bleed increased in size when he came in. We will continue keeping his blood pressure as low as we can, Decadron; he is here for cerebrovascular accident hemorrhage, hypertension, diabetes and weakness. Thank you very much. Apparently subacute rehab Frankie Shine DO MTDGabe
[2017-08-10] MEDS ORDERED: Insulin Reg-HIGH-Coverage SC SCH (16:30)
[2017-08-10 17:49] VITALS: BP 148/76; RESP 18; TEMP 98
[2017-08-10] MEDS: Insulin Regular 1 UNITS/0.01 ML ML SC ONE ×2 (18:06→18:28)
[2017-08-10 20:17] VITALS: PULSE 48
== END 2017-08-10 21:16 | DRG 64 ==
LOC: ED 12:24 → ERH 14:47 → CCU 16:19 → 2RSO 08-09 15:11
PROVIDERS: ADMIT Family Medicine; ATTEND Family Medicine
DX: I61.1 Nontraumatic intracerebral hemorrhage in hemisphere, cortical (principal); G93.6 Cerebral edema; I10 Essential (primary) hypertension; K40.20 Bilateral inguinal hernia, without obstruction or gangrene, not specified as recurrent; E11.9 Type 2 diabetes mellitus without complications; K59.00 Constipation, unspecified; R32 Unspecified urinary incontinence; Z79.4 Long term (current) use of insulin; R29.702 NIHSS score 2